=== PATIENT | female | born 1965 | race Caucasian/White ===

== ENCOUNTER 2016-11-08 12:47 | Emergency (ER) | payer OTHER ==
[2016-11-08] MEDS ORDERED: solu-MEDROL 125 MG IV ONE (13:21)
[2016-11-08] MEDS ORDERED: ROCEPHIN 1 Gm-D5w 50 ml Bag** 50 ML IV ONE ×2 (13:21→13:26)
[2016-11-08] MEDS ORDERED: DUONEB 0.5-3 MG/3 ml Neb IH ONE ×2 (13:21→13:38)
[2016-11-08] MEDS ORDERED: solu-MEDROL 125 MG ONE (13:26)
[2016-11-08] MEDS ORDERED: Sodium Chloride 0.9% 1000 ML 1,000 ML ONE (13:26)
--- NOTE | 2016-11-08 13:29 | ERPHSYRPT ---
- History of Present Illness Time Seen by Provider: 11/08/16 13:15 Source: patient Exam Limitations: clinical condition Patient Subjective Stated Complaint: pt cough-yellow, chills,aches for 6 days now, Triage Nursing Assessment: pt alert,coughing,congested, sob with excertion, pt has inhaler at home and is not using it, chest with wheezes, alert, skin w/d Physician History: PATIENT WITH HISTORY OF COPD COMPLAINS OF PRODUCTIVE COUGH YELLOW SPUTUM FOR 1 WEEK ASSOCIATED WITH EXERTIONAL DYSPNEA, LOW GRADE FEVER, LONG STANDING SMOKING HISTORY. DENIES CHEST PAIN, DIAPHORESIS. Timing/Duration: day(s) Cough Quality/Degree: productive cough Possible Cause: occasional episodes Modifying Factors: Improves With: activity Associated Symptoms: fever, chills, other (EXERTIONAL DYSPNEA) Allergies/Adverse Reactions: No Known Drug Allergies Allergy (Verified 11/08/16 12:59) Home Medications: Levothyroxine Sodium 125 Mcg 100 mcg DAILY 06/23/12 [History] Hx Tetanus, Diphtheria Vaccination/Date Given: (UNSURE) Hx Influenza Vaccination/Date Given: No Hx Pneumococcal Vaccination/Date Given: No Immunizations Up to Date: Yes - Review of Systems Constitutional: Fever, No Chills Eyes: No Symptoms Ears, Nose, & Throat: No Symptoms Respiratory: Dyspnea on Exertion (GAITAN), No Cough, No Dyspnea Cardiac: No Symptoms, No Chest Pain, No Edema, No Syncope Abdominal/Gastrointestinal: No Symptoms, No Abdominal Pain, No Nausea, No Vomiting, No Diarrhea Genitourinary Symptoms: No Symptoms, No Dysuria Musculoskeletal: No Symptoms, No Back Pain, No Neck Pain Skin: No Symptoms, No Rash Neurological: No Dizziness, No Focal Weakness, No Sensory Changes Psychological: No Symptoms Endocrine: No Symptoms All Other Systems: Reviewed and Negative - Past Medical History Pertinent Past Medical History: Yes Neurological History: No Pertinent History ENT History: No Pertinent History Cardiac History: No Pertinent History Respiratory History: Bronchitis, Emphysema, Pneumonia Endocrine Medical History: Hypothyroidism Musculoskeletal History: Arthritis GI Medical History: No Pertinent History History: No Pertinent History Psycho-Social History: Anxiety, Depression, Panic Disorder Female Reproductive Disorders: Other - Past Surgical History Past Surgical History: Yes Neuro Surgical History: No Pertinent History Cardiac: No Pertinent History Respiratory: No Pertinent History Gastrointestinal: No Pertinent History Genitourinary: No Pertinent History Musculoskeletal: No Pertinent History, Orthopedic Surgery Female Surgical History: Hysterectomy, Other Other Surgical History: CYST REMOVAL. PARTIAL HYSTER - Social History Smoking Status: Current every day smoker How long have you smoked: 1 Exposure to second hand smoke: Yes Drug Use: none Patient Lives Alone: No - Female History Hx Last Menstrual Period: hyster - Nursing Vital Signs Nursing Vital Signs: Initial Vital Signs Temperature 98.2 F Temperature Source Oral Pulse Rate 67 Respiratory Rate 18 Blood Pressure [Right Arm] 114/79 Pain Intensity 0 - Physical Exam General Appearance: no apparent distress, alert Eye Exam: PERRL/EOMI, eyes nml inspection Ears, Nose, Throat Exam: normal ENT inspection, TMs normal, pharynx normal, moist mucous membranes Neck Exam: normal inspection, non-tender, supple, full range of motion Respiratory Exam: diminished breath sounds (TERMINAL EXPIRATORY WHEEZES ), wheezing, No respiratory distress Cardiovascular Exam: regular rate/rhythm, normal heart sounds Gastrointestinal/Abdomen Exam: soft, normal bowel sounds (NONTENDER), No tenderness Back Exam: normal inspection, No CVA tenderness, No vertebral tenderness Extremity Exam: normal inspection, normal range of motion Neurologic Exam: alert, oriented x 3, cooperative, normal mood/affect, sensation nml, No motor deficits Skin Exam: normal color, warm, dry, No rash Lymphatic Exam: No adenopathy SpO2 Interpretation: normal SpO2: 92 Oxygen Delivery: Room Air - Radiology Exams Chest X-ray Interpretation: Discussed w/ radiologist (HYPERINFLATION, ) Ordered Tests: Active Orders 24 hr Category Date Time Status IV Insertion STAT Care 11/08/16 13:21 Active CHEST 1 VIEW (PORTABLE) Stat Exams 11/08/16 13:21 Completed BLOOD CULTURE Stat Lab 11/08/16 13:35 Received CBC W DIFF Stat Lab 11/08/16 13:30 Completed CULTURE,SPUTUM Stat Lab 11/08/16 13:40 Received Respiratory Nebulizer STAT RT 11/08/16 13:23 Completed Medication Summary Generic Name Dose Route Start Last Admin Trade Name Freq PRN Reason Stop Dose Admin Sodium Chloride 1,000 mls @ 250 mls/hr 11/08/16 13:30 11/08/16 13:35 Sodium Chloride 0.9% 1000 Ml IV 12/08/16 13:29 250 mls/hr .Q4H RICA Administration Discontinued Medications Generic Name Dose Route Start Last Admin Trade Name Freq PRN Reason Stop Dose Admin Albuterol/Ipratropium 3 ml 11/08/16 13:21 11/08/16 13:40 Duoneb 0.5-3 Mg/3 Ml Neb IH 11/08/16 13:22 3 ml STAT ONE Administration Albuterol/Ipratropium Confirm 11/08/16 13:38 Duoneb 0.5-3 Mg/3 Ml Neb Administered 11/08/16 13:39 Dose 3 ml IH .STK-MED ONE Ceftriaxone Sodium/Dextrose 50 mls @ 100 mls/hr 11/08/16 13:21 11/08/16 13:36 Rocephin 1 Gm-D5w 50 Ml Bag IV 11/08/16 13:50 100 mls/hr STAT ONE Administration Sodium Chloride Confirm 11/08/16 13:26 Sodium Chloride 0.9% 1000 Ml Administered 11/08/16 13:27 Dose 1,000 mls @ ud .ROUTE .STK-MED ONE Ceftriaxone Sodium/Dextrose Confirm 11/08/16 13:26 Rocephin 1 Gm-D5w 50 Ml Bag Administered 11/08/16 13:27 Dose 50 mls @ ud IV .STK-MED ONE Methylprednisolone Sodium Succinate 125 mg 11/08/16 13:21 11/08/16 13:37 Solu-Medrol 125 Mg IV 11/08/16 13:22 125 mg STAT ONE Administration Methylprednisolone Sodium Succinate Confirm 11/08/16 13:26 Solu-Medrol 125 Mg Administered 11/08/16 13:27 Dose 125 mg .ROUTE .STK-MED ONE Lab/Rad Data: Laboratory Result Diagrams 11/08/16 13:30 Laboratory Results 11/08/16 Range/Units 13:30 WBC 13.0 H (4.0-10.5) K/mm3 RBC 4.02 L (4.1-5.4) M/mm3 Hgb 12.9 (12.0-16.0) gm/dl Hct 38.1 (35-47) % MCV 94.8 (78-100) fl MCH 32.0 (26-32) pg MCHC 33.9 (32-36) g/dl RDW 14.8 H (11.5-14.0) % Plt Count 191 (150-450) K/mm3 MPV 11.6 H (6-9.5) fl Gran % 75.2 H (36.0-66.0) % Lymphocytes % 16.0 L (24.0-44.0) % Monocytes % 8.4 (0.0-12.0) % Eosinophils % 0.2 (0.00-5.0) % Basophils % 0.2 (0.0-0.4) % Basophils # 0.02 (0-0.4) - Progress Progress: improved Air Movement: good Progress Note: 11/08/16 13:27 PATIENT GIVEN IV FLUIDS NORMAL SALINE 250ML/HR, SOLUMEDROL 125MG IV, DUONEB AEROSOL TX, IV ROCEPHIN 1GM IVPB AFTER 2 SETS OF BLOOD CULTURES Blood Culture(s) Obtained: Yes Antibiotics given: Yes (ROCEPHIN 1GM IVPB) Counseled pt/family regarding: lab results, diagnosis, need for follow-up, rad results - Departure Time of Disposition: 14:50 Departure Disposition: Home Clinical Impression: ACUTE BRONCHITIS WITH BRONCHIOSPASM Condition: Stable Critical Care Time: No Additional Instructions: BEGIN ANTIBIOTIC CEFTIN 250MG TWICE DAILY FOR 10 DAYS, PREDNISONE 20MG, 2 TABLETS DAILY FOR 5 DAYS, AND ALBUTEROL NEBULIZER TREATMENTS EVERY 4 HOURS NEEDED. CONSULT YOUR FAMILY PHYSICIAN IN 1 WEEK FOR FOLLOWUP. RETURN TO EMERGENCY FOR DIFFICULTY BREATHING. TAKE OVER THE COUNTER TYLENOL NEEDED FOR FEVER. Prescriptions: Albuterol 2.5 mg/3 ml Neb [Proventil 2.5 mg/3 ml Neb] 2.5 mg IH Q4HPRN PRN #30 neb PRN Reason: DIFFICULTY BREATHING Cefuroxime Axetil [Cefuroxime] 250 mg PO BID #20 tablet Prednisone 20 mg [Deltasone 20 mg] 2 tablet PO DAILY #8 tablet
[2016-11-08] MEDS ORDERED: Sodium Chloride 0.9% 1000 ML 1,000 ML IV SCH (13:30)
--- NOTE | 2016-11-08 13:44 | XRAY ---
Indication: Cough and short of breath. Comparison: June 23, 2012. Portable chest again hyperinflated. No focal infiltrate, consolidation, or large effusion. Heart is not enlarged. Vascularity normal. Bony thorax intact again with old right seventh rib fracture. Impression: Nonacute chest.
[2016-11-08 13:55] LABS: BASOPHIL % 0.2 % (0.0-0.4); Eosinophil % 0.2 % (0.00-5.0); Granulocytes % 75.2 % (36.0-66.0); Mean Cell Volume 94.8 fl (78-100); Mean Platelet Volume 11.6 fl (6-9.5); Monocytes % 8.4 % (0.0-12.0); Platelet Count 191 K/mm3 (150-450); Red Blood Count 4.02 M/mm3 (4.1-5.4); Red Cell Distribution Width 14.8 % (11.5-14.0)
[2016-11-08 15:06] VITALS: BP 121/82; PULSE 84; O2SAT 97
== END 2016-11-08 15:06 | disposition home or self-care (01) ==
LOC: ED 12:47
DX: J20.9 Acute bronchitis, unspecified (principal); J44.9 Chronic obstructive pulmonary disease, unspecified; R05 Cough; R50.9 Fever, unspecified; Z87.891 Personal history of nicotine dependence; E03.9 Hypothyroidism, unspecified; R06.00 Dyspnea, unspecified
CPT/HCPCS: 36000; 36415; 71010; 85025; 87040; 87070; 94640; 96360; 96365; 96374; 99284; J0696; J2930

== ENCOUNTER 2018-11-21 21:00 | Emergency (ER) | payer OTHER ==
[2018-11-21 21:39] LABS: BASOPHIL % 0.3 % (0.0-0.4); Basophil (Absolute #) 0.02 (0-0.4); Eosinophil % 2.4 % (0.00-5.0); Eosinophil (Absolute #) 0.19 (0-0.5); Granulocyte Absolute (ANC) 4.58 (1.4-6.9); Granulocytes % 58.1 % (36.0-66.0); Hematocrit 38.4 % (35-47); Hemoglobin 12.5 gm/dl (12.0-16.0); Lymphocyte (Absolute #) 2.46 (1.0-4.6); Lymphocytes % 31.2 % (24.0-44.0); Mean Cell Volume 94.8 fl (78-100); Mean Corpuscular Hgb Concent. 32.6 g/dl (32-36); Mean Platelet Volume 11.7 fl (6-9.5); Monocyte (Absolute #) 0.63 (0.0-1.3); Platelet Count 204 K/mm3 (150-450); Red Blood Count 4.05 M/mm3 (4.1-5.4); White Blood Count 7.9 K/mm3 (4.0-10.5)
[2018-11-21 21:44] LABS: ALBUMIN 4.6 g/dL (3.5-5.0); ALKALINE PHOSPHATASE 127 U/L (38-126); ANION GAP 10.2 MEQ/L (5-15); BLOOD UREA NITROGEN 11 mg/dL (7-17); CHLORIDE 102 mmol/L (98-107); Calcium 9.7 mg/dL (8.4-10.2); Carbon Dioxide 30 mmol/L (22-30); Creatinine 1 0.76 mg/dL (0.52-1.04); Glucose 90 mg/dL (74-106); Potassium 3.4 mmol/L (3.5-5.1); SGOT/AST 44 U/L (14-36); SGPT/ALT 40 U/L (0-35); SODIUM 139 mmol/L (137-145); Total Protein 8.1 g/dL (6.3-8.2)
[2018-11-21 21:46] LABS: Mean Corpuscular Hemoglobin 30.8 pg (26-32)
--- NOTE | 2018-11-21 21:50 | ERPHSYRPT ---
- History of Present Illness Time Seen by Provider: 11/21/18 21:41 Source: patient Exam Limitations: no limitations Patient Subjective Stated Complaint: pt reports cough, congestion and headache for 2 days. reports the back of her head is pounding. pt reports nasal drainage that is yellow in color. pt reports while showering tonight she began to have left sided chest pain that radiates to the axilla. pt reports vomiting. pt states she also has pain in her neck. Triage Nursing Assessment: pt is aox3, pupils perrl, afebrile, radial pulses strong and equal, resps easy and non labored, lung sounds are clear, heart sounds are strong and regular, cap refill < 3 seconds, skin pink warm dry. Physician History: 53-year-old white female arrives with complaint cough congestion 2 days states she she had a headache going along with this she states that she feels like she is getting yellow drainage for her nose today coughing up yellow sputum. She states she was in the shower today just prior to arrival she had sharp shooting pain which radiated from the top of her head and ended up hurting in her left axillary area she states she is tender when she palpates her of left lateral chest. She states she has had some shortness of breath she is coughing she's had a sore throat. Past medical history includes hypothyroidism, bronchitis, emphysema, pneumonia, arthritis, anxiety, depression, panic disorder/ Past surgical history includes hysterectomy, orthopedic surgery, cyst removed from her right shoulder, partial hysterectomy/ Social history is positive for marijuana positive tobacco patient denies amphetamines cocaine or other illicit drugs than marijuana/ Denies alcohol use Timing/Duration: day(s) (cough and cold for 2 daysharp shooting pain radiating from the back of her head going to her left lateral chest today.) Severity: moderate Modifying Factors: Improves With: nothing Associated Symptoms: shortness of breath, cough, chest pain (Sharp lateral chest pain which radiates from her head and is worse with palpation), headaches , No nausea, No vomiting, No abdominal pain, No heartburn, No diaphoresis, No chills, No fever, No loss of appetite, No malaise, No rash, No syncope, No seizure, No weakness Allergies/Adverse Reactions: No Known Drug Allergies Allergy (Verified 11/21/18 21:17) Home Medications: Levothyroxine Sodium 125 Mcg 100 mcg DAILY 10/12/12 [History] Hx Tetanus, Diphtheria Vaccination/Date Given: No Hx Influenza Vaccination/Date Given: No Hx Pneumococcal Vaccination/Date Given: No Immunizations Up to Date: Yes - Review of Systems Constitutional: No Fever, No Chills Eyes: No Symptoms Ears, Nose, & Throat: Nose Congestion, Nose Discharge, Throat Pain, No Ear Pain , No Ear Discharge, No Hearing Changes, No Tinnitus, No Nose Pain, No Sinus Drainage, No Epistaxis, No Mouth Pain, No Mouth Swelling, No Loose Teeth, No Throat Swelling, No Hoarse, No Painful Swallowing, No Snoring, No Stridor Respiratory: Cough, Dyspnea, No Cyanosis, No Dyspnea on Exertion (GAITAN), No Wheezing Cardiac: Chest Pain (sharp lateral chest pain radiates from her head shooting in nature worse with palpation) Abdominal/Gastrointestinal: No Abdominal Pain, No Nausea, No Vomiting, No Diarrhea Genitourinary Symptoms: No Dysuria Musculoskeletal: No Back Pain, No Neck Pain Skin: No Rash Neurological: No Dizziness, No Focal Weakness, No Sensory Changes Psychological: No Symptoms Endocrine: No Symptoms All Other Systems: Reviewed and Negative - Past Medical History Pertinent Past Medical History: Yes Neurological History: No Pertinent History ENT History: No Pertinent History Cardiac History: No Pertinent History Respiratory History: Bronchitis, Emphysema, Pneumonia Endocrine Medical History: Hypothyroidism Musculoskeletal History: Arthritis GI Medical History: No Pertinent History History: No Pertinent History Psycho-Social History: Anxiety, Depression, Panic Disorder Female Reproductive Disorders: Other - Past Surgical History Past Surgical History: Yes Neuro Surgical History: No Pertinent History Cardiac: No Pertinent History Respiratory: No Pertinent History Gastrointestinal: No Pertinent History Genitourinary: No Pertinent History Musculoskeletal: No Pertinent History, Orthopedic Surgery Female Surgical History: Hysterectomy, Other Other Surgical History: CYST REMOVAL. PARTIAL HYSTER - Social History Smoking Status: Current every day smoker How long have you smoked: 1 Exposure to second hand smoke: Yes Drug Use: marijuana Patient Lives Alone: No - Female History Hx Last Menstrual Period: partial hyst Hx Now: No - Nursing Vital Signs Nursing Vital Signs: Initial Vital Signs Temperature 97.6 F 11/21/18 21:04 Pulse Rate 76 11/21/18 21:04 Respiratory Rate 20 11/21/18 21:04 Blood Pressure 143/79 11/21/18 21:04 O2 Sat by Pulse Oximetry 98 11/21/18 21:04 Pain Scale Pain Intensity 7 - Physical Exam General Appearance: mild distress, alert Eye Exam: PERRL/EOMI, eyes nml inspection Ears, Nose, Throat Exam: normal ENT inspection, TMs normal, pharynx normal, moist mucous membranes Neck Exam: normal inspection, non-tender, supple, full range of motion Respiratory Exam: normal breath sounds, lungs clear, No respiratory distress Cardiovascular Exam: regular rate/rhythm, normal heart sounds, normal peripheral pulses, capillary refill <2 sec Gastrointestinal/Abdomen Exam: soft, normal bowel sounds, No tenderness, No mass Back Exam: normal inspection, normal range of motion, No CVA tenderness, No vertebral tenderness Extremity Exam: normal inspection, normal range of motion, pelvis stable Neurologic Exam: alert, oriented x 3, cooperative, medical cash poster II-XII nml as tested, normal mood/affect, nml cerebellar function, nml station & gait, sensation nml, No motor deficits Skin Exam: normal color, warm, dry, No rash Lymphatic Exam: No adenopathy SpO2 Interpretation: normal (98%) SpO2: 98 O2 Delivery: Room Air - Course Nursing assessment & vital signs reviewed: Yes EKG Interpreted by Me: RATE (76 bpm), Other (EKG: Sinus arrhythmia, 76 bpm, normal axis, isolated T-wave inversion in lead 3, no acute ST or T wave changes) - CT Exams Head CT Interpretation: Discussed w/radiologist (head CT: No comparisons. Normal CT head) Ordered Tests: Active Orders 24 hr Category Date Time Status Software Clerk STAT Care 11/21/18 21:30 Active EKG-ER Only STAT Care 11/21/18 21:30 Active EKG-ER Only STAT Care 11/22/18 01:14 Active IV Insertion STAT Care 11/21/18 21:30 Active Pulse Oximetry (ED) STAT Care 11/21/18 21:30 Active CHEST 1 VIEW (PORTABLE) Stat Exams 11/21/18 21:30 Taken HEAD WITHOUT CONTRAST [CT] Stat Exams 11/21/18 21:45 Taken CBC W DIFF Stat Lab 11/21/18 21:35 Completed CMP Stat Lab 11/21/18 21:35 Completed D-DIMER QUANTITATION Stat Lab 11/21/18 21:35 Completed PROTIME WITH INR Stat Lab 11/21/18 21:35 Completed PTT Stat Lab 11/21/18 21:35 Completed TROPONIN Q3H Lab 11/21/18 21:35 Completed TROPONIN Q3H Lab 11/22/18 00:42 Completed TROPONIN Q3H Lab 11/22/18 03:30 Ordered TROPONIN Q3H Lab 11/22/18 06:30 Ordered TROPONIN Q3H Lab 11/22/18 09:30 Ordered Medication Summary Discontinued Medications Generic Name Dose Route Start Last Admin Trade Name Uliq PRN Reason Stop Dose Admin Aspirin 324 mg 11/21/18 22:28 11/21/18 22:36 Baby Aspirin 81 Mg Chew PO 11/21/18 22:29 324 mg STAT ONE Administration Aspirin Confirm 11/21/18 22:34 Baby Aspirin 81 Mg Chew Administered 11/21/18 22:35 Dose 324 mg .ROUTE .STZzish-MED ONE Lab/Rad Data: Laboratory Result Diagrams 11/21/18 21:35 11/21/18 21:35 Laboratory Results 11/22/18 11/21/18 11/21/18 Range/Units 00:42 21:56 21:35 WBC (4.0-10.5) K/mm3 RBC (4.1-5.4) M/mm3 Hgb (12.0-16.0) gm/dl Hct (35-47) % MCV (78-100) fl MCH (26-32) pg MCHC (32-36) g/dl RDW (11.5-14.0) % Plt Count (150-450) K/mm3 MPV (6-9.5) fl Gran % (36.0-66.0) % Eos # (Auto) (0-0.5) Absolute Lymphs (auto) (1.0-4.6) Absolute Monos (auto) (0.0-1.3) Lymphocytes % (24.0-44.0) % Monocytes % (0.0-12.0) % Eosinophils % (0.00-5.0) % Basophils % (0.0-0.4) % Absolute Granulocytes (1.4-6.9) Basophils # (0-0.4) PT 11.8 (9.95-12.35) SECONDS INR 1.01 (0.8-3.0) APTT 30.2 (25.3-37.0) SECONDS D-Dimer 416 (215-500) ng/mL Sodium (137-145) mmol/L Potassium (3.5-5.1) mmol/L Chloride (98-107) mmol/L Carbon Dioxide (22-30) mmol/L Anion Gap (5-15) MEQ/L BUN (7-17) mg/dL Creatinine (0.52-1.04) mg/dL Estimated GFR ML/MIN Glucose (74-106) mg/dL Calcium (8.4-10.2) mg/dL Total Bilirubin (0.2-1.3) mg/dL AST (14-36) U/L ALT (0-35) U/L Alkaline Phosphatase (38-126) U/L Troponin I 0.158 H* (0.000-0.034) ng/mL Serum Total Protein (6.3-8.2) g/dL Albumin (3.5-5.0) g/dL Influenza Type A Ag NEGATIVE (NEGATIVE) Influenza Type B Ag NEGATIVE (NEGATIVE) RSV (PCR) NEGATIVE (Negative) Group A Strep Antibody NEGATIVE (NEGATIVE) 11/21/18 11/21/18 11/21/18 Range/Units 21:35 21:35 21:35 WBC 7.9 (4.0-10.5) K/mm3 RBC 4.05 L (4.1-5.4) M/mm3 Hgb 12.5 (12.0-16.0) gm/dl Hct 38.4 (35-47) % MCV 94.8 (78-100) fl MCH 30.8 (26-32) pg MCHC 32.6 (32-36) g/dl RDW 16.0 H (11.5-14.0) % Plt Count 204 (150-450) K/mm3 MPV 11.7 H (6-9.5) fl Gran % 58.1 (36.0-66.0) % Eos # (Auto) 0.19 (0-0.5) Absolute Lymphs (auto) 2.46 (1.0-4.6) Absolute Monos (auto) 0.63 (0.0-1.3) Lymphocytes % 31.2 (24.0-44.0) % Monocytes % 8.0 (0.0-12.0) % Eosinophils % 2.4 (0.00-5.0) % Basophils % 0.3 (0.0-0.4) % Absolute Granulocytes 4.58 (1.4-6.9) Basophils # 0.02 (0-0.4) PT (9.95-12.35) SECONDS INR (0.8-3.0) APTT (25.3-37.0) SECONDS D-Dimer (215-500) ng/mL Sodium 139 (137-145) mmol/L Potassium 3.4 L (3.5-5.1) mmol/L Chloride 102 (98-107) mmol/L Carbon Dioxide 30 (22-30) mmol/L Anion Gap 10.2 (5-15) MEQ/L BUN 11 (7-17) mg/dL Creatinine 0.76 (0.52-1.04) mg/dL Estimated GFR > 60.0 ML/MIN Glucose 90 (74-106) mg/dL Calcium 9.7 (8.4-10.2) mg/dL Total Bilirubin 0.50 (0.2-1.3) mg/dL AST 44 H (14-36) U/L ALT 40 H (0-35) U/L Alkaline Phosphatase 127 H (38-126) U/L Troponin I 0.038 H* (0.000-0.034) ng/mL Serum Total Protein 8.1 (6.3-8.2) g/dL Albumin 4.6 (3.5-5.0) g/dL Influenza Type A Ag (NEGATIVE) Influenza Type B Ag (NEGATIVE) RSV (PCR) (Negative) Group A Strep Antibody (NEGATIVE) - Progress Progress: improved Progress Note: 11/21/18 23:24 Patient doing well. She is complaining of a headache at this time. EKG shows isolated T-wave inversion in lead [address] or T wave changes noted. Troponin is slightly elevated at 0.038 (normal to 0 .034) I have talked with the patient about possibly discussing case with physician extrusion engineer for hospital however patient states that she does not want to be admitted. I have told her this is how we rule out cardiac problems. Patient has agreed to stay and get a second troponin. 11/22/18 01:17 Informed by laboratory data patient's preliminary repeat troponin is 0.159 This is elevated. Patient is actually pain-free at this time. Patient is refusing ambulance transfer. 11/22/18 02:55 I discussed patient's case with Dr. Yun hospitalist through [facility] call. I've gone through the patient's labs CT x-ray and EKGs. He has requested the patient receive Lovenox 1 mg/kg subcutaneously. Patient has already received aspirin 324 mg orally. He has excepted for transfer to [facility] PCU. Transfer center will call back with the bed. Impression 1. URI. 2. chest pain. 3, elevated troponin. 4.non-ST elevation myocardial infarction. - Departure Time of Disposition: 02:57 Departure Disposition: Transfer ([facility] Dr Yun) Clinical Impression: Elevated troponin, Non-ST elevation MS (NSTEMI) URI (upper respiratory infection) Qualifiers: URI type: unspecified viral URI Qualified Code(s): J06.9 - Acute upper respiratory infection, unspecified Chest pain Qualifiers: Chest pain type: unspecified Qualified Code(s): R07.9 - Chest pain, unspecified Headache Qualifiers: Headache type: unspecified Headache chronicity pattern: acute headache Intractability: not intractable Qualified Code(s): R51 - Headache Condition: Fair Critical Care Time: No Referrals: ALEXUS KOHLI [Primary Care Provider] -
[2018-11-21 21:57] LABS: INR 1.01 (0.8-3.0); PROTIME 11.8 SECONDS (9.95-12.35)
[2018-11-21 21:59] LABS: PTT 30.2 SECONDS (25.3-37.0)
[2018-11-21] MEDS ORDERED: BABY ASPIRIN 81 MG CHEW PO ONE (22:28)
[2018-11-21] MEDS ORDERED: BABY ASPIRIN 81 MG CHEW ONE (22:34)
[2018-11-21 22:38] LABS: Group A Strep NEGATIVE (NEGATIVE); INFLUENZA A NEGATIVE (NEGATIVE); INFLUENZA B NEGATIVE (NEGATIVE); RESPIRATORY SYNCTIAL VIRUS NEGATIVE (Negative)
[2018-11-22 01:20] VITALS: O2SAT 98
[2018-11-22] MEDS ORDERED: ENOXAPARIN SODIUM SQ STA (03:04)
[2018-11-22] MEDS ORDERED: ENOXAPARIN SODIUM SQ ONE (03:16)
[2018-11-22 03:51] VITALS: BP 134/61; PULSE 66
--- NOTE | 2018-11-22 08:34 | XRAY ---
Indication: Headache. Multiple contiguous axial images obtained through the head without contrast. Comparison: None. Normal appearing brain parenchyma, ventricles, and bony calvarium. Minimal mucosal thickening right ethmoid and right sphenoid sinuses. Remaining visualized paranasal sinuses and mastoid air cells are clear. Impression: Normal CT head without contrast exam. Minimal paranasal sinus disease. CT DI 70.98
--- NOTE | 2018-11-22 08:39 | XRAY ---
Indication: Chest pain. Comparison: November 08, 2016. Portable chest remains hyperinflated with minimal right upper lobe fibrosis/scarring. No focal infiltrate, consolidation, or large effusion. Heart is not enlarged. Bony thorax intact again with old right 7 rib fracture. Impression: Nonacute hyperinflated chest with chronic features.
== END 2018-11-22 04:11 | disposition short-term general hospital (02) ==
LOC: ED 21:00
DX: J06.9 Acute upper respiratory infection, unspecified (principal); R07.9 Chest pain, unspecified; R51 Headache; R74.8 Abnormal levels of other serum enzymes; I21.4 Non-ST elevation (NSTEMI) myocardial infarction; E03.9 Hypothyroidism, unspecified; R78.4 Finding of other drugs of addictive potential in blood
CPT/HCPCS: 36000; 36415; 70450; 71045; 80053; 84484; 85025; 85379; 85610; 85730; 87631; 87651; 93005; 93041; 96372; 99285; J1650; A9270-GY

== ENCOUNTER 2023-02-25 14:54 | Inpatient (IN) | payer OTHER ==
--- NOTE | 2023-02-25 15:00 | ERPHSYRPT ---
- History of Present Illness Time Seen by Provider: 02/25/23 14:59 Historian: patient, family Exam Limitations: no limitations Physician History: This is a 57-year-old white female patient of Dr. Jimenez who presents with vomiting that occurred 2 days ago and then again yesterday with associated coughing then diarrhea today with coughing. There is been no vomiting today. Patient denies chest pain. Patient quit smoking 3 days ago. She has had a decreased appetite. She has no significant abdominal pain. Patient has a history of bronchitis, COPD, panic disorder and hypothyroidism. Patient has had a hysterectomy in the past. Timing/Duration: day(s) (3) Activities at Onset: none Quality: sharpness (Not in the abdomen but the right mid chest), stabbing (Not in the abdomen but in the right mid chest) Severity of Pain-Max: none Severity of Pain-Current: none Modifying Factors: Improves With: coughing (With pain in the right mid chest) Associated Symptoms: chest pain (Right mid chest with coughing), diarrhea, vomiting, weakness, No fever/chills Previous symptoms: no prior history, no recent treatment Allergies/Adverse Reactions: No Known Drug Allergies Allergy (Verified 02/25/23 16:07) Home Medications: Levothyroxine Sodium 100 Mcg [Synthroid 100 Mcg] 100 mcg PO DAILY 02/25/23 [History] Hx Tetanus, Diphtheria Vaccination/Date Given: No Hx Influenza Vaccination/Date Given: No Hx Pneumococcal Vaccination/Date Given: No Travel Risk - International Travel Have you traveled outside of the country in past 3 weeks: No - Coronavirus Screening Are you exhibiting any of the following symptoms?: Yes Symptoms: Cough: New Onset, Shortness of Breath Close contact with a COVID-19 positive Pt in past 14-21 Days: No - Review of Systems Constitutional: Weakness Eyes: No Symptoms Ears, Nose, & Throat: No Symptoms Respiratory: Cough, Dyspnea, Dyspnea on Exertion ([place]) Cardiac: No Symptoms, Chest Pain (Right mid chest with coughing) Abdominal/Gastrointestinal: No Symptoms Genitourinary Symptoms: No Symptoms Musculoskeletal: No Symptoms Skin: No Symptoms Neurological: No Symptoms Psychological: No Symptoms Endocrine: No Symptoms Hematologic/Lymphatic: No Symptoms Immunological/Allergic: No Symptoms All Other Systems: Reviewed and Negative - Past Medical History Pertinent Past Medical History: Yes Neurological History: No Pertinent History ENT History: No Pertinent History Cardiac History: No Pertinent History Respiratory History: Bronchitis, Emphysema, Pneumonia Endocrine Medical History: Hypothyroidism Musculoskeletal History: Arthritis GI Medical History: No Pertinent History History: No Pertinent History Psycho-Social History: Anxiety, Depression, Panic Disorder Female Reproductive Disorders: Other - Past Surgical History Past Surgical History: Yes Neuro Surgical History: No Pertinent History Cardiac: No Pertinent History Respiratory: No Pertinent History Gastrointestinal: No Pertinent History Genitourinary: No Pertinent History Musculoskeletal: No Pertinent History, Orthopedic Surgery Female Surgical History: Hysterectomy, Other Other Surgical History: CYST REMOVAL. PARTIAL HYSTER - Social History Smoking Status: Current every day smoker How long have you smoked: 1 Exposure to second hand smoke: Yes Drug Use: marijuana Patient Lives Alone: No - Nursing Vital Signs Nursing Vital Signs: Initial Vital Signs Temperature 99.7 F 02/25/23 15:36 Pulse Rate 84 02/25/23 15:36 Blood Pressure 149/72 02/25/23 15:36 O2 Sat by Pulse Oximetry 97 02/25/23 15:36 Pain Scale Pain Intensity 7 - Physical Exam General Appearance: mild distress, alert, anxiety Eye Exam: PERRL/EOMI, eyes nml inspection Ears, Nose, Throat Exam: normal ENT inspection, moist mucous membranes Neck Exam: normal inspection, non-tender, supple, full range of motion Respiratory Exam: chest tenderness, airway intact, diminished breath sounds, rh onchi (Right mid chest), No respiratory distress (Right mid chest with coughing) Cardiovascular Exam: regular rate/rhythm, normal heart sounds, normal peripheral pulses Gastrointestinal/Abdomen Exam: soft, normal bowel sounds, No tenderness Pelvic Exam: not done Rectal Exam: not done Back Exam: normal inspection, normal range of motion, No CVA tenderness, No vertebral tenderness Extremity Exam: normal inspection, normal range of motion, pelvis stable Neurologic Exam: alert, oriented x 3, cooperative, final expense agent II-XII nml as tested, normal mood/affect, nml cerebellar function, nml station & gait, sensation nml Skin Exam: normal color, warm, dry Lymphatic Exam: No adenopathy SpO2 Interpretation: normal O2 Delivery: Room Air - Course Nursing assessment & vital signs reviewed: Yes Ordered Tests: Active Orders 24 hr Category Date Time Status Bilingual Loan Processor STAT Care 02/25/23 16:00 Active IV Insertion STAT Care 02/25/23 15:59 Active Nursing [Miscellaneous Nursing Order] ROUTINE Care 02/25/23 18:13 Ordered Pulse Oximetry (ED) STAT Care 02/25/23 15:59 Active CHEST 1 VIEW (PORTABLE) Stat Exams 02/25/23 15:45 Taken BLOOD CULTURE Stat Lab 02/25/23 16:25 Received CBC W DIFF Stat Lab 02/25/23 16:25 Completed CMP Stat Lab 02/25/23 16:25 Completed Lactic Acid Stat Lab 02/25/23 16:25 Completed MONO SCREEN Stat Lab 02/25/23 16:25 Completed Manual Differential NC Stat Lab 02/25/23 16:25 Completed UA W/RFX UR CULTURE Stat Lab 02/25/23 16:06 Completed Transfer Order Routine Transfer 02/25/23 Ordered Medication Summary Generic Name Dose Route Start Last Admin Trade Name Freq PRN Reason Stop Dose Admin Sodium Chloride 1,000 mls @ 999 mls/hr 02/25/23 17:46 02/25/23 17:52 Sodium Chloride 0.9% 1000 Ml IV 02/25/23 18:46 999 mls/hr .Q1H1M STA Administration Ceftriaxone Sodium/Dextrose 1 g in 50 mls @ 100 mls/hr 02/25/23 18:05 Rocephin 1 Gm-D5w 50 Ml Bag IV 02/25/23 18:34 STAT STA Discontinued Medications Generic Name Dose Route Start Last Admin Trade Name Freq PRN Reason Stop Dose Admin Acetaminophen 650 mg 02/25/23 17:21 02/25/23 17:23 Acetaminophen 325 Mg Tablet PO 02/25/23 17:22 650 mg STAT STA Administration Acetaminophen Confirm 02/25/23 17:22 Acetaminophen 325 Mg Tablet Administered 02/25/23 17:23 Dose 650 mg .ROUTE .STK-MED ONE Acetaminophen Confirm 02/25/23 17:25 Acetaminophen 325 Mg Tablet Administered 02/25/23 17:26 Dose 325 mg .ROUTE .STK-MED ONE Hydrocodone Bitart/Acetaminophen 10 ml 02/25/23 16:02 02/25/23 16:44 Hydrocodone/Acetaminophen 5 Ml Udcup PO 02/25/23 16:03 10 ml STAT STA Administration Hydrocodone Bitart/Acetaminophen Confirm 02/25/23 16:42 Hydrocodone/Acetaminophen 5 Ml Udcup Administered 02/25/23 16:43 Dose 10 ml .ROUTE .STK-MED ONE Sodium Chloride 1,000 mls @ 999 mls/hr 02/25/23 16:01 02/25/23 17:47 Sodium Chloride 0.9% 1000 Ml IV 02/25/23 17:01 Infused .Q1H1M STA Infusion Sodium Chloride Confirm 02/25/23 16:42 Sodium Chloride 0.9% 1000 Ml Administered 02/25/23 16:43 Dose 1,000 mls @ ud .ROUTE .STK-MED ONE Levofloxacin/Dextrose Confirm 02/25/23 16:51 Levofloxacin 500mg/100ml D5w Administered 02/25/23 16:52 Dose 500 mg in 100 mls @ ud IV .STK-MED ONE Levofloxacin/Dextrose 500 mg in 100 mls @ 100 mls/hr 02/25/23 16:56 02/25/23 18:00 Levofloxacin 500mg/100ml D5w IV 02/25/23 17:55 Infused STAT STA Infusion Sodium Chloride Confirm 02/25/23 17:50 Sodium Chloride 0.9% 1000 Ml Administered 02/25/23 17:51 Dose 1,000 mls @ ud .ROUTE .STK-MED ONE Ondansetron HCl 4 mg 02/25/23 16:01 02/25/23 16:44 Ondansetron Hcl 4 Mg/2 Ml Vial IV 02/25/23 16:02 4 mg STAT ONE Administration Ondansetron HCl Confirm 02/25/23 16:41 Ondansetron Hcl 4 Mg/2 Ml Vial Administered 02/25/23 16:42 Dose 4 mg .ROUTE .STK-MED ONE Lab/Rad Data: Laboratory Result Diagrams 02/25/23 16:25 02/25/23 16:25 Laboratory Results 02/25/23 02/25/23 02/25/23 Range/Units 16:25 16:25 16:25 WBC (4.0-10.5) x10^3/uL RBC (4.1-5.4) x10^6/uL Hgb (12.0-16.0) g/dL Hct (35-47) % MCV (78-100) fL MCH (26-32) pg MCHC (32-36) g/dL RDW (11.5-14.0) % Plt Count (150-450) x10^3/uL MPV (7.5-11.0) fL Gran % (36.0-66.0) % Immature Gran % (Auto) (0.00-0.4) % Nucleat RBC Rel Count (0.00-0.1) % Eos # (Auto) (0-0.5) x10^3/uL Immature Gran # (Auto) (0.00-0.03) x10^3u/L Absolute Lymphs (auto) (1.0-4.6) x10^3/uL Absolute Monos (auto) (0.0-1.3) x10^3/uL Absolute Nucleated RBC (0.00-0.01) x10^3u/L Lymphocytes % (24.0-44.0) % Monocytes % (0.0-12.0) % Eosinophils % (0.00-5.0) % Basophils % (0.0-0.4) % Absolute Granulocytes (1.4-6.9) x10^3/uL Segmented Neutrophils (36.0-66.0) % Lymphocytes (Manual) (24-44) % Basophils # (0-0.4) x10^3/uL Dohle Bodies Platelet Estimate (NORMAL) RBC Morphology Anisocytosis Sodium (137-145) mmol/L Potassium (3.5-5.1) mmol/L Chloride (98-107) mmol/L Carbon Dioxide (22-30) mmol/L Anion Gap (5-15) MEQ/L BUN (7-17) mg/dL Creatinine (0.52-1.04) mg/dL Estimated GFR ML/MIN Glucose (74-106) mg/dL Lactic Acid (0.4-2.0) Calcium (8.4-10.2) mg/dL Total Bilirubin (0.2-1.3) mg/dL AST (14-36) U/L ALT (0-35) U/L Alkaline Phosphatase (38-126) U/L Serum Total Protein (6.3-8.2) g/dL Albumin (3.5-5.0) g/dL Urine Color (Yellow) Urine Appearance (Clear) Urine pH (4.6-8.0) Ur Specific [place] (1.005-1.030) Urine Protein (Negative) Urine Glucose (UA) (Negative) mg/dL Urine Ketones (Negative) Urine Blood (Negative) Urine Nitrite (Negative) Urine Bilirubin (Negative) Urine Urobilinogen (0.2) mg/dL Ur Leukocyte Esterase (Negative) U Hyaline Cast (Auto) (0-2) /LPF Urine Microscopic RBC (0-5) /HPF Urine Microscopic WBC (0-5) /HPF Ur Epithelial Cells (None Seen) /HPF Urine Bacteria (None Seen) /HPF Urine Culture Reflexed (NO) Monoscreen NEGATIVE (NEGATIVE) Influenza Type A Ag NEGATIVE (NEGATIVE) Influenza Type B Ag NEGATIVE (NEGATIVE) RSV (PCR) NEGATIVE (NEGATIVE) SARS-CoV-2 (PCR) NEGATIVE (NEGATIVE) Group A Strep Antibody NOT DETECTED (NEGATIVE) 02/25/23 02/25/23 02/25/23 Range/Units 16:25 16:25 16:25 WBC 14.4 H (4.0-10.5) x10^3/uL RBC 4.29 (4.1-5.4) x10^6/uL Hgb 10.3 L (12.0-16.0) g/dL Hct 33.8 L (35-47) % MCV 78.8 (78-100) fL MCH 24.0 L (26-32) pg MCHC 30.5 L (32-36) g/dL RDW 17.2 H (11.5-14.0) % Plt Count 193 (150-450) x10^3/uL MPV 11.0 (7.5-11.0) fL Gran % 93.1 H (36.0-66.0) % Immature Gran % (Auto) 0.3 (0.00-0.4) % Nucleat RBC Rel Count 0.0 (0.00-0.1) % Eos # (Auto) 0 (0-0.5) x10^3/uL Immature Gran # (Auto) 0.05 H (0.00-0.03) x10^3u/L Absolute Lymphs (auto) 0.72 L (1.0-4.6) x10^3/uL Absolute Monos (auto) 0.21 (0.0-1.3) x10^3/uL Absolute Nucleated RBC 0.00 (0.00-0.01) x10^3u/L Lymphocytes % 5.0 L (24.0-44.0) % Monocytes % 1.5 (0.0-12.0) % Eosinophils % 0.0 (0.00-5.0) % Basophils % 0.1 (0.0-0.4) % Absolute Granulocytes 13.41 H (1.4-6.9) x10^3/uL Segmented Neutrophils 96 H (36.0-66.0) % Lymphocytes (Manual) 4 L (24-44) % Basophils # 0.02 (0-0.4) x10^3/uL Dohle Bodies 1+ Platelet Estimate NORMAL (NORMAL) RBC Morphology ABNORMAL Anisocytosis 1+ Sodium 131 L (137-145) mmol/L Potassium 3.6 (3.5-5.1) mmol/L Chloride 93 L (98-107) mmol/L Carbon Dioxide 24 (22-30) mmol/L Anion Gap 17.8 H (5-15) MEQ/L BUN 27 H (7-17) mg/dL Creatinine 1.02 (0.52-1.04) mg/dL Estimated GFR 59.6 ML/MIN Glucose 100 (74-106) mg/dL Lactic Acid 4.0 H (0.4-2.0) Calcium 8.8 (8.4-10.2) mg/dL Total Bilirubin 1.00 (0.2-1.3) mg/dL AST 37 H (14-36) U/L ALT 23 (0-35) U/L Alkaline Phosphatase 74 (38-126) U/L Serum Total Protein 7.8 (6.3-8.2) g/dL Albumin 4.0 (3.5-5.0) g/dL Urine Color (Yellow) Urine Appearance (Clear) Urine pH (4.6-8.0) Ur Specific [place] (1.005-1.030) Urine Protein (Negative) Urine Glucose (UA) (Negative) mg/dL Urine Ketones (Negative) Urine Blood (Negative) Urine Nitrite (Negative) Urine Bilirubin (Negative) Urine Urobilinogen (0.2) mg/dL Ur Leukocyte Esterase (Negative) U Hyaline Cast (Auto) (0-2) /LPF Urine Microscopic RBC (0-5) /HPF Urine Microscopic WBC (0-5) /HPF Ur Epithelial Cells (None Seen) /HPF Urine Bacteria (None Seen) /HPF Urine Culture Reflexed (NO) Monoscreen (NEGATIVE) Influenza Type A Ag (NEGATIVE) Influenza Type B Ag (NEGATIVE) RSV (PCR) (NEGATIVE) SARS-CoV-2 (PCR) (NEGATIVE) Group A Strep Antibody (NEGATIVE) 02/25/23 Range/Units 16:06 WBC (4.0-10.5) x10^3/uL RBC (4.1-5.4) x10^6/uL Hgb (12.0-16.0) g/dL Hct (35-47) % MCV (78-100) fL MCH (26-32) pg MCHC (32-36) g/dL RDW (11.5-14.0) % Plt Count (150-450) x10^3/uL MPV (7.5-11.0) fL Gran % (36.0-66.0) % Immature Gran % (Auto) (0.00-0.4) % Nucleat RBC Rel Count (0.00-0.1) % Eos # (Auto) (0-0.5) x10^3/uL Immature Gran # (Auto) (0.00-0.03) x10^3u/L Absolute Lymphs (auto) (1.0-4.6) x10^3/uL Absolute Monos (auto) (0.0-1.3) x10^3/uL Absolute Nucleated RBC (0.00-0.01) x10^3u/L Lymphocytes % (24.0-44.0) % Monocytes % (0.0-12.0) % Eosinophils % (0.00-5.0) % Basophils % (0.0-0.4) % Absolute Granulocytes (1.4-6.9) x10^3/uL Segmented Neutrophils (36.0-66.0) % Lymphocytes (Manual) (24-44) % Basophils # (0-0.4) x10^3/uL Dohle Bodies Platelet Estimate (NORMAL) RBC Morphology Anisocytosis Sodium (137-145) mmol/L Potassium (3.5-5.1) mmol/L Chloride (98-107) mmol/L Carbon Dioxide (22-30) mmol/L Anion Gap (5-15) MEQ/L BUN (7-17) mg/dL Creatinine (0.52-1.04) mg/dL Estimated GFR ML/MIN Glucose (74-106) mg/dL Lactic Acid (0.4-2.0) Calcium (8.4-10.2) mg/dL Total Bilirubin (0.2-1.3) mg/dL AST (14-36) U/L ALT (0-35) U/L Alkaline Phosphatase (38-126) U/L Serum Total Protein (6.3-8.2) g/dL Albumin (3.5-5.0) g/dL Urine Color Dark Yellow A (Yellow) Urine Appearance Clear (Clear) Urine pH 5.0 (4.6-8.0) Ur Specific [place] 1.025 (1.005-1.030) Urine Protein 100 A (Negative) Urine Glucose (UA) Negative (Negative) mg/dL Urine Ketones Negative (Negative) Urine Blood Negative (Negative) Urine Nitrite Negative (Negative) Urine Bilirubin Negative (Negative) Urine Urobilinogen 0.2 (0.2) mg/dL Ur Leukocyte Esterase Negative (Negative) U Hyaline Cast (Auto) 20-50 (0-2) /LPF Urine Microscopic RBC 0-2 (0-5) /HPF Urine Microscopic WBC 0-2 (0-5) /HPF Ur Epithelial Cells Rare (None Seen) /HPF Urine Bacteria None Seen (None Seen) /HPF Urine Culture Reflexed NO (NO) Monoscreen (NEGATIVE) Influenza Type A Ag (NEGATIVE) Influenza Type B Ag (NEGATIVE) RSV (PCR) (NEGATIVE) SARS-CoV-2 (PCR) (NEGATIVE) Group A Strep Antibody (NEGATIVE) - Progress Progress: pain not gone completely Progress Note: 02/25/23 16:21 Chest x-ray was reviewed and interpreted by me and it appears as though the patient has a right middle lobe pneumonia with fibrosis and scarring present. It is in a wedge shaped. 02/25/23 18:06 This patient's medical issue is 1 of high complexity. The level of complexity and the work-up performed is based on the review of the patient's past medical history, review of the patient's medication list, review of the patient's drug allergy list, history of present illness and the findings on physical examination. The work-up includes placement of intravenous line and infusion of normal saline solution, CBC, CMP, lactic acid, chest x-ray, and blood cultures. Patient work-up results were reviewed by me. Patient has a right middle lobe pneumonia. Patient did spike a fever while in the emergency department. We will provide the patient with 500 mg Levaquin here in the emergency department intravenously as well as Rocephin 1 g. We will start azithromycin tomorrow to space out from the Levaquin. I spoke with Dr. Dickinson, the telehospitalist on- call till 7 PM. I reviewed the patient history, work-up results physical findings and radiographic study results. Counseled pt/family regarding: lab results, diagnosis, rad results, smoking cessation Medical Desision Making - Discussion of managment Reviewed:: Test results, Need for additional workup Agreed on:: place in obs - Diagnostic Testing Diagnostic test were ordered, analyzed, and reviewed by me: Yes Radiological Interpretation: Interpreted by me - Risk of complications The pt has a high risk of morbidity or mortality based on: Decision regarding hospitilization or escalation of hosp level of care - Departure Departure Disposition: Observation Clinical Impression: Fever, Right middle lobe pneumonia Condition: Stable Critical Care Time: No Referrals: DALE AMBROSE MD [Primary Care Provider] - Follow up/PCP as directed
[2023-02-25] MEDS ORDERED: Zofran 4 MG/2 ML VIAL IV ONE (16:01)
[2023-02-25] MEDS ORDERED: Sodium Chloride 0.9% 1000 ML 1,000 ML IV STA ×2 (16:01→17:46)
[2023-02-25] MEDS ORDERED: HYDROCODONE-ACETAMIN 2.5-108/5 ML SOLUTION PO STA (16:02)
[2023-02-25 16:29] LABS: Absolute Neutrophil Ct (ANC) 13.41 x10^3/uL (1.4-6.9); BASOPHIL % 0.1 % (0.0-0.4); Basophil (Absolute #) 0.02 x10^3/uL (0-0.4); Eosinophil (Absolute #) 0 x10^3/uL (0-0.5); Hematocrit 33.8 % (35-47); Hemoglobin 10.3 g/dL (12.0-16.0); IMMATURE GRAN # 0.05 x10^3u/L (0.00-0.03); IMMATURE GRAN % 0.3 % (0.00-0.4); Lymphocyte (Absolute #) 0.72 x10^3/uL (1.0-4.6); Mean Cell Volume 78.8 fL (78-100); Mean Corpuscular Hgb Concent. 30.5 g/dL (32-36); Monocyte (Absolute #) 0.21 x10^3/uL (0.0-1.3); Monocytes % 1.5 % (0.0-12.0); Neutrophil % 93.1 % (36.0-66.0); Platelet Count 193 x10^3/uL (150-450); Red Blood Count 4.29 x10^6/uL (4.1-5.4); Red Cell Distribution Width 17.2 % (11.5-14.0); White Blood Count 14.4 x10^3/uL (4.0-10.5)
[2023-02-25] MEDS ORDERED: Zofran 4 MG/2 ML VIAL ONE (16:41)
[2023-02-25 16:42] LABS: Appearance Clear (Clear); Bacteria None Seen /HPF (None Seen); Bilirubin Negative (Negative); Blood Negative (Negative); Epithelial Cells Rare /HPF (None Seen); Glucose, Urine Negative (Negative); Ketones Negative (Negative); Leukocyte Esterase Negative (Negative); Nitrite Negative (Negative); Protein,Urine Dip 100 (Negative); RBC 0-2 /HPF (0-5); Specific Gravity 1.025 (1.005-1.030); Urobilinogen 0.2 mg/dL (0.2); WBC 0-2 /HPF (0-5)
[2023-02-25] MEDS ORDERED: HYDROCODONE-ACETAMIN 2.5-108/5 ML SOLUTION ONE (16:42)
[2023-02-25] MEDS ORDERED: Sodium Chloride 0.9% 1000 ML 1,000 ML ONE ×2 (16:42→17:50)
[2023-02-25 16:44] LABS: ANION GAP 17.8 MEQ/L (5-15); Calcium 8.8 mg/dL (8.4-10.2); Creatinine 1 1.02 mg/dL (0.52-1.04); EST GLOMERULAR FILTRATION RATE 59.6 ML/MIN; Potassium 3.6 mmol/L (3.5-5.1); Total Protein 7.8 g/dL (6.3-8.2)
[2023-02-25 16:45] LABS: ADD URINE CULTURE? NO (NO); Hyaline Casts 20-50 /LPF (0-2)
[2023-02-25] MEDS ORDERED: Levofloxacin 500MG/100ML D5W 500 MG/100 ML BAG IV ONE (16:51)
[2023-02-25] MEDS ORDERED: Levofloxacin 500MG/100ML D5W 500 MG/100 ML BAG IV STA (16:56)
[2023-02-25 17:01] LABS: Lymphocytes 4 % (24-44); Total Cells Counted 100
[2023-02-25 17:03] LABS: INFLUENZA A NEGATIVE (NEGATIVE); INFLUENZA B NEGATIVE (NEGATIVE); RESPIRATORY SYNCTIAL VIRUS NEGATIVE (NEGATIVE); SARS-CoV-2 Xpert Express NEGATIVE (NEGATIVE)
[2023-02-25 17:08] LABS: ANISOCYTOSIS 1+
[2023-02-25 17:11] LABS: Dohle Bodies 1+
[2023-02-25 17:12] LABS: Neutrophils 96 % (36.0-66.0)
[2023-02-25 17:13] LABS: Platelet Estimate NORMAL (NORMAL)
[2023-02-25] MEDS ORDERED: TYLENOL 325 MG PO STA (17:21)
[2023-02-25] MEDS ORDERED: TYLENOL 325 MG ONE ×2 (17:22→17:25)
[2023-02-25] MEDS ORDERED: ROCEPHIN 1 Gm-D5w 50 ml Bag** 1 G/50 ML IVPB IV STA (18:05)
[2023-02-25] MEDS ORDERED: ROCEPHIN 1 Gm-D5w 50 ml Bag** 1 G/50 ML IVPB IV ONE (18:16)
[2023-02-25] MEDS ORDERED: TYLENOL 325 MG PO PRN (20:18)
[2023-02-25] MEDS ORDERED: Zofran 4 MG/2 ML VIAL IV PRN (20:18)
[2023-02-25] MEDS: Sodium Chloride 0.9% 1000 ML 1,000 ML IV SCH (21:19)
[2023-02-25] MEDS ORDERED: Robitussin-Dm Syrup PO PRN (22:38)
--- NOTE | 2023-02-25 22:42 | XRAY ---
Indication: Dyspnea. Comparison: November 21, 2018 Portable chest demonstrates new right upper lobe consolidating/nonconsolidating airspace disease with tiny effusion. Remaining heart, left lung, and bony thorax unremarkable.
--- NOTE | 2023-02-25 22:48 | PCM.HP ---
History of Present Illness - Chief Complaint Chief Complaint: pneumonia Date: 02/25/23 History of Present Illness: Ms. Turner is a 57 year-old female with chronic anemia, hypothyroidism, and a prior PTX who presents wiht chest pain. She admits to three days of symptoms along with fevers ([id number]), cough, chills, shortness of breath, nausea, and vomiting. Upon arrival to [facility], laboratory data was remarkable for a sodium of 131, lactate 4, Cr 1.02, H/H while imaging revealed a wedge like consolidation in the RML. On my examination, she is on 2L NC dening any current fevers, chills, nausea, vomiting, diarrhea, syncope, presyncope, visual changes, orthopnea, PND, odynophagia, dysphagia, belly pain, dysuria, hematuria, melena, hematochezia, or neurological changes. All other systems were reviewed and were negative. - Review of Systems Constitutional: Other (As per HPI) Medications & Allergies Home Medications: Home Medication List Levothyroxine Sodium 100 Mcg [Synthroid 100 Mcg] 100 mcg PO DAILY 02/25/23 [History Confirmed 02/25/23] Allergies/Adverse Reactions: Allergies Allergy/AdvReac Type Severity Reaction Status Date / Time No Known Drug Allergies Allergy Verified 02/25/23 16:07 - Past Medical History Past Medical History: Yes Neurological History: No Pertinent History ENT History: No Pertinent History Cardiac History: No Pertinent History Respiratory History: Bronchitis, Pneumonia Endocrine Medical History: Hypothyroidism Musculoskelatal History: No Pertinent History GI Medical History: No Pertinent History History: No Pertinent History Pyscho-Social History: Anxiety, Depression, Panic Disorder Reproductive Disorders: Other - Female History Are you now?: No - Past Surgical History Past Surgical History: Yes Neuro Surgical History: No Pertinent History Cardiac History: No Pertinent History Respiratory Surgery: No Pertinent History GI Surgical History: No Pertinent History Genitourinary Surgical Hx: No Pertinent History Musculskeletal Surgical Hx: No Pertinent History Female Surgical History: Hysterectomy, Other Other Surgical History: CYST REMOVAL. PARTIAL HYSTER - Social History Smoking Status: Former smoker How long have you smoked: 1 Exposure to second hand smoke: Yes Alcohol: None Drug Use: marijuana - Physical Exam Vital Signs: Vital Signs - 24 hr Temp Pulse Resp BP BP Pulse Ox 02/25/23 21:00 91 L 06/16/23 20:20 98.7 F 88 20 116/58 02/25/23 19:00 100 F 97 H 22 116/59 93 L 02/25/23 18:30 95 H 20 106/68 94 L 02/25/23 18:00 101.8 F 103 H 21 115/56 96 02/25/23 17:22 97 H 18 143/63 98 02/25/23 16:06 86 21 126/76 96 02/25/23 16:05 96 02/25/23 15:36 99.7 F 84 149/72 97 General Appearance: no apparent distress, alert Neurologic Exam: alert, oriented x 3, cooperative, normal mood/affect, nml cerebellar function, nml station & gait, sensation nml, No motor deficits Eye Exam: PERRL/EOMI, eyes nml inspection Ears, Nose, Throat Exam: normal ENT inspection, TMs normal, pharynx normal, moist mucous membranes Neck Exam: normal inspection, non-tender, supple, full range of motion Respiratory Exam: rhonchi Cardiovascular Exam: regular rate/rhythm, normal heart sounds, normal peripheral pulses Gastrointestinal/Abdomen Exam: soft, normal bowel sounds, No tenderness, No mass Back Exam: normal inspection, normal range of motion, No CVA tenderness, No vertebral tenderness Extremity Exam: normal inspection, normal range of motion, pelvis stable Skin Exam: normal color, warm, dry, No rash Lymphatic Exam: No adenopathy Results - Labs Lab/Micro Results: Lab Results-Last 24 Hours 02/25/23 02/25/23 02/25/23 Range/Units 16:06 16:25 16:25 WBC 14.4 H (4.0-10.5) x10^3/uL RBC 4.29 (4.1-5.4) x10^6/uL Hgb 10.3 L (12.0-16.0) g/dL Hct 33.8 L (35-47) % MCV 78.8 (78-100) fL MCH 24.0 L (26-32) pg MCHC 30.5 L (32-36) g/dL RDW 17.2 H (11.5-14.0) % Plt Count 193 (150-450) x10^3/uL MPV 11.0 (7.5-11.0) fL Gran % 93.1 H (36.0-66.0) % Immature Gran % (Auto) 0.3 (0.00-0.4) % Nucleat RBC Rel Count 0.0 (0.00-0.1) % Eos # (Auto) 0 (0-0.5) x10^3/uL Immature Gran # (Auto) 0.05 H (0.00-0.03) x10^3u/L Absolute Lymphs (auto) 0.72 L (1.0-4.6) x10^3/uL Absolute Monos (auto) 0.21 (0.0-1.3) x10^3/uL Absolute Nucleated RBC 0.00 (0.00-0.01) x10^3u/L Lymphocytes % 5.0 L (24.0-44.0) % Monocytes % 1.5 (0.0-12.0) % Eosinophils % 0.0 (0.00-5.0) % Basophils % 0.1 (0.0-0.4) % Absolute Granulocytes 13.41 H (1.4-6.9) x10^3/uL Segmented Neutrophils 96 H (36.0-66.0) % Lymphocytes (Manual) 4 L (24-44) % Basophils # 0.02 (0-0.4) x10^3/uL Dohle Bodies 1+ Platelet Estimate NORMAL (NORMAL) RBC Morphology ABNORMAL Anisocytosis 1+ Sodium (137-145) mmol/L Potassium (3.5-5.1) mmol/L Chloride (98-107) mmol/L Carbon Dioxide (22-30) mmol/L Anion Gap (5-15) MEQ/L BUN (7-17) mg/dL Creatinine (0.52-1.04) mg/dL Estimated GFR ML/MIN Glucose (74-106) mg/dL Lactic Acid 4.0 H (0.4-2.0) Calcium (8.4-10.2) mg/dL Total Bilirubin (0.2-1.3) mg/dL AST (14-36) U/L ALT (0-35) U/L Alkaline Phosphatase (38-126) U/L Serum Total Protein (6.3-8.2) g/dL Albumin (3.5-5.0) g/dL Urine Color Dark Yellow A (Yellow) Urine Appearance Clear (Clear) Urine pH 5.0 (4.6-8.0) Ur Specific Butler 1.025 (1.005-1.030) Urine Protein 100 A (Negative) Urine Glucose (UA) Negative (Negative) mg/dL Urine Ketones Negative (Negative) Urine Blood Negative (Negative) Urine Nitrite Negative (Negative) Urine Bilirubin Negative (Negative) Urine Urobilinogen 0.2 (0.2) mg/dL Ur Leukocyte Esterase Negative (Negative) U Hyaline Cast (Auto) 20-50 (0-2) /LPF Urine Microscopic RBC 0-2 (0-5) /HPF Urine Microscopic WBC 0-2 (0-5) /HPF Ur Epithelial Cells Rare (None Seen) /HPF Urine Bacteria None Seen (None Seen) /HPF Urine Culture Reflexed NO (NO) Monoscreen (NEGATIVE) Influenza Type A Ag (NEGATIVE) Influenza Type B Ag (NEGATIVE) RSV (PCR) (NEGATIVE) SARS-CoV-2 (PCR) (NEGATIVE) Group A Strep Antibody (NEGATIVE) 02/25/23 02/25/23 02/25/23 Range/Units 16:25 16:25 16:25 WBC (4.0-10.5) x10^3/uL RBC (4.1-5.4) x10^6/uL Hgb (12.0-16.0) g/dL Hct (35-47) % MCV (78-100) fL MCH (26-32) pg MCHC (32-36) g/dL RDW (11.5-14.0) % Plt Count (150-450) x10^3/uL MPV (7.5-11.0) fL Gran % (36.0-66.0) % Immature Gran % (Auto) (0.00-0.4) % Nucleat RBC Rel Count (0.00-0.1) % Eos # (Auto) (0-0.5) x10^3/uL Immature Gran # (Auto) (0.00-0.03) x10^3u/L Absolute Lymphs (auto) (1.0-4.6) x10^3/uL Absolute Monos (auto) (0.0-1.3) x10^3/uL Absolute Nucleated RBC (0.00-0.01) x10^3u/L Lymphocytes % (24.0-44.0) % Monocytes % (0.0-12.0) % Eosinophils % (0.00-5.0) % Basophils % (0.0-0.4) % Absolute Granulocytes (1.4-6.9) x10^3/uL Segmented Neutrophils (36.0-66.0) % Lymphocytes (Manual) (24-44) % Basophils # (0-0.4) x10^3/uL Dohle Bodies Platelet Estimate (NORMAL) RBC Morphology Anisocytosis Sodium 131 L (137-145) mmol/L Potassium 3.6 (3.5-5.1) mmol/L Chloride 93 L (98-107) mmol/L Carbon Dioxide 24 (22-30) mmol/L Anion Gap 17.8 H (5-15) MEQ/L BUN 27 H (7-17) mg/dL Creatinine 1.02 (0.52-1.04) mg/dL Estimated GFR 59.6 ML/MIN Glucose 100 (74-106) mg/dL Lactic Acid (0.4-2.0) Calcium 8.8 (8.4-10.2) mg/dL Total Bilirubin 1.00 (0.2-1.3) mg/dL AST 37 H (14-36) U/L ALT 23 (0-35) U/L Alkaline Phosphatase 74 (38-126) U/L Serum Total Protein 7.8 (6.3-8.2) g/dL Albumin 4.0 (3.5-5.0) g/dL Urine Color (Yellow) Urine Appearance (Clear) Urine pH (4.6-8.0) Ur Specific Butler (1.005-1.030) Urine Protein (Negative) Urine Glucose (UA) (Negative) mg/dL Urine Ketones (Negative) Urine Blood (Negative) Urine Nitrite (Negative) Urine Bilirubin (Negative) Urine Urobilinogen (0.2) mg/dL Ur Leukocyte Esterase (Negative) U Hyaline Cast (Auto) (0-2) /LPF Urine Microscopic RBC (0-5) /HPF Urine Microscopic WBC (0-5) /HPF Ur Epithelial Cells (None Seen) /HPF Urine Bacteria (None Seen) /HPF Urine Culture Reflexed (NO) Monoscreen NEGATIVE (NEGATIVE) Influenza Type A Ag (NEGATIVE) Influenza Type B Ag (NEGATIVE) RSV (PCR) (NEGATIVE) SARS-CoV-2 (PCR) (NEGATIVE) Group A Strep Antibody NOT DETECTED (NEGATIVE) 02/25/23 02/25/23 Range/Units 16:25 18:33 WBC (4.0-10.5) x10^3/uL RBC (4.1-5.4) x10^6/uL Hgb (12.0-16.0) g/dL Hct (35-47) % MCV (78-100) fL MCH (26-32) pg MCHC (32-36) g/dL RDW (11.5-14.0) % Plt Count (150-450) x10^3/uL MPV (7.5-11.0) fL Gran % (36.0-66.0) % Immature Gran % (Auto) (0.00-0.4) % Nucleat RBC Rel Count (0.00-0.1) % Eos # (Auto) (0-0.5) x10^3/uL Immature Gran # (Auto) (0.00-0.03) x10^3u/L Absolute Lymphs (auto) (1.0-4.6) x10^3/uL Absolute Monos (auto) (0.0-1.3) x10^3/uL Absolute Nucleated RBC (0.00-0.01) x10^3u/L Lymphocytes % (24.0-44.0) % Monocytes % (0.0-12.0) % Eosinophils % (0.00-5.0) % Basophils % (0.0-0.4) % Absolute Granulocytes (1.4-6.9) x10^3/uL Segmented Neutrophils (36.0-66.0) % Lymphocytes (Manual) (24-44) % Basophils # (0-0.4) x10^3/uL Dohle Bodies Platelet Estimate (NORMAL) RBC Morphology Anisocytosis Sodium (137-145) mmol/L Potassium (3.5-5.1) mmol/L Chloride (98-107) mmol/L Carbon Dioxide (22-30) mmol/L Anion Gap (5-15) MEQ/L BUN (7-17) mg/dL Creatinine (0.52-1.04) mg/dL Estimated GFR ML/MIN Glucose (74-106) mg/dL Lactic Acid 1.9 (0.4-2.0) Calcium (8.4-10.2) mg/dL Total Bilirubin (0.2-1.3) mg/dL AST (14-36) U/L ALT (0-35) U/L Alkaline Phosphatase (38-126) U/L Serum Total Protein (6.3-8.2) g/dL Albumin (3.5-5.0) g/dL Urine Color (Yellow) Urine Appearance (Clear) Urine pH (4.6-8.0) Ur Specific Butler (1.005-1.030) Urine Protein (Negative) Urine Glucose (UA) (Negative) mg/dL Urine Ketones (Negative) Urine Blood (Negative) Urine Nitrite (Negative) Urine Bilirubin (Negative) Urine Urobilinogen (0.2) mg/dL Ur Leukocyte Esterase (Negative) U Hyaline Cast (Auto) (0-2) /LPF Urine Microscopic RBC (0-5) /HPF Urine Microscopic WBC (0-5) /HPF Ur Epithelial Cells (None Seen) /HPF Urine Bacteria (None Seen) /HPF Urine Culture Reflexed (NO) Monoscreen (NEGATIVE) Influenza Type A Ag NEGATIVE (NEGATIVE) Influenza Type B Ag NEGATIVE (NEGATIVE) RSV (PCR) NEGATIVE (NEGATIVE) SARS-CoV-2 (PCR) NEGATIVE (NEGATIVE) Group A Strep Antibody (NEGATIVE) - Radiology Impressions Radiology Exams & Impressions: Radiology Procedures Category Date Time Status CHEST 1 VIEW (PORTABLE) Stat Exams 02/25/23 15:45 Taken CHEST WITHOUT CONTRAST [CT] Stat Exams 02/25/23 22:33 Ordered - Other Procedures and Tests Respiratory Therapy 02/25/23 20:18 Respiratory Therapy Consult ONCE Assessment/Plan (1) Right middle lobe pneumonia Current Visit: Yes Status: Acute Assessment & Plan: ASSESSMENT 1. Acute Hypoxemic Respiratory Failure 2. Pneumonia 3. Elevated Lactate 4. Hyponatremia 5. Chronic Anemia 6. Hypothyroidism 7. Prior Pneumothorax PLAN 1. Wean oxygen to maintain SaO2 > 90%; currently on 2L NC 2. Azithro + Zosyn for Abx; viral panel negative 3. Duonebs q4 4. Antitussives with robitussin and tessalon perles 5. Gentle fluids x 2L 6. CT chest without contrast tonight 7. Lactate trending down Lovenox The entirety of this encounter was done via telemedicine Jeovanny Correa MD Pulmonary and Critical Care Medicine Code(s): J18.9 - PNEUMONIA, UNSPECIFIED ORGANISM Telemedicine Encounter - Telemedicine Encounter Telemedicine Encounter: The entirety of this encounter was performed via Telemedicine"
[2023-02-25] MEDS ORDERED: ENOXAPARIN SODIUM SQ ONE (22:54)
[2023-02-25] MEDS ORDERED: PIPERACILLIN/TAZOBACTAM IV ONE (23:20)
[2023-02-25] MEDS ORDERED: Sodium Chloride 100ML MINI-BAG PLUS 100 ML IV ONE (23:23)
[2023-02-25] MEDS: PIPERACILLIN/TAZOBACTAM 3.375 GM in Sodium Chloride 100ML MINI-BAG PLUS 100 ML IV SCH (23:30)
[2023-02-25] MEDS: DUONEB 0.5-3 MG/3 ml Neb IH SCH (23:43)
[2023-02-26] MEDS: PIPERACILLIN/TAZOBACTAM 3.375 GM in Sodium Chloride 100ML MINI-BAG PLUS 100 ML IV SCH ×5 (00:48→23:08)
--- NOTE | 2023-02-26 01:40 | XRAY ---
CLINICAL HISTORY:abnormal CXR COMPARISON:None; TECHNIQUES:Contiguous axial CT images of the chest were acquired without the administration of intravenous contrast. Coronal and sagittal reconstructions were also obtained; FINDINGS: Patchy consolidation with air bronchograms identified in the right upper lobe predominantly involving anterior and posterior segments. Minimal right-sided pleural effusion with underlying atelectatic changes right lower zone. Bilateral emphysematous changes were identified in both lung [place] predominantly in both upper lobes, however more on the right side. No consolidation or pleural effusion on left side. A few enlarged mediastinal lymph nodes were identified one of the right hilar lymph nodes measures 1.9 x 1.9 cm. An enlarge right supraclavicular lymph node was noted measuring 2.1 x 1.6 cm. Heart and pericardium appear normal. Both lobes of the thyroid gland appear normal. Mild degenerative changes were seen in visualized thoracic spine. Visualized scanned upper abdomen is unremarkable. IMPRESSION: 2-[id number] findings are suggestive of pneumonia consolidation in the right lung field, however, the possibility of the underlying neoplastic lesion can not be excluded Would recommend CT chest with contrast and follow-up for further evaluation. 2-Minimal right-sided pleural effusion with underlying atelectatic changes. 3-A few enlarged mediastinal and right supraclavicular lymphadenopathy. Electronically Signed by: Lorin Cartwright MD. (02/26/2023 00:36:43 REAM CUTTER)
[2023-02-26] MEDS: DUONEB 0.5-3 MG/3 ml Neb IH SCH ×6 (03:45→23:35)
[2023-02-26] MEDS ORDERED: PIPERACILLIN/TAZOBACTAM IV ONE (04:53)
[2023-02-26] MEDS ORDERED: Sodium Chloride 100ML MINI-BAG PLUS 100 ML IV ONE (04:53)
[2023-02-26] MEDS: HYDROCODONE-ACETAMIN 2.5-108/5 ML SOLUTION PO PRN ×2 (05:38→12:14)
[2023-02-26 05:42] LABS: Hematocrit 27.7 % (35-47); Hemoglobin 8.8 g/dL (12.0-16.0); Mean Cell Volume 77.2 fL (78-100); Mean Corpuscular Hemoglobin 24.5 pg (26-32); Mean Corpuscular Hgb Concent. 31.8 g/dL (32-36); Mean Platelet Volume 11.4 fL (7.5-11.0); Platelet Count 158 x10^3/uL (150-450); Red Blood Count 3.59 x10^6/uL (4.1-5.4); Red Cell Distribution Width 17.3 % (11.5-14.0); White Blood Count 14.8 x10^3/uL (4.0-10.5)
[2023-02-26 06:07] LABS: ALKALINE PHOSPHATASE 69 U/L (38-126); ANION GAP 11.8 MEQ/L (5-15); BLOOD UREA NITROGEN 20 mg/dL (7-17); CHLORIDE 102 mmol/L (98-107); Calcium 8.3 mg/dL (8.4-10.2); Carbon Dioxide 23 mmol/L (22-30); Creatinine 1 0.78 mg/dL (0.52-1.04); EST GLOMERULAR FILTRATION RATE > 60.0 ML/MIN; Glucose 93 mg/dL (74-106); NT PRO BNPII 922 pg/mL (<300); Potassium 3.2 mmol/L (3.5-5.1); SGOT/AST 26 U/L (14-36); SGPT/ALT 18 U/L (0-35); SODIUM 133 mmol/L (137-145); Total Protein 6.1 g/dL (6.3-8.2)
[2023-02-26 06:31] LABS: BAND 11 % (0.0-2.0); Lymphocytes 10 % (24-44); Monocyte 2 % (0.0-12.0); Neutrophils 77 % (36.0-66.0); Total Cells Counted 100
[2023-02-26 06:33] LABS: ANISOCYTOSIS 1+; Platelet Estimate NORMAL (NORMAL); Poikilocytosis 1+
[2023-02-26] MEDS: Zithromax 500 MG/ 250 ML NaCl Premix 500 MG/250 ML IVPB IV SCH (08:39)
[2023-02-26] MEDS: Tessalon Perles 100 MG PO PRN (08:54)
[2023-02-26] MEDS: SYNTHROID 100 MCG PO SCH (08:54)
[2023-02-26] MEDS ORDERED: Phenergan 25 MG INJ*** 12.5 MG in Sodium Chloride 0.9% 100 ML IV PRN (09:41)
--- NOTE | 2023-02-26 09:55 | PCM.NOTE ---
Date and Time: 02/26/2349 Subjective Assessment: Reports nausea. Cough and dyspnea have slightly improved. The patient was seen and examined via telemedicine. The entirety of this encounter was performed via telemedicine. The patient consented to this telemedicine encounter. 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, normal mood/affect, nml cerebellar function Skin Exam: normal color Eye Exam: PERRL, EOMI, eyes nml inspection Ears, Nose, Throat Exam: normal ENT inspection Neck Exam: normal inspection, non-tender, supple, full range of motion Respiratory Exam: rhonchi Cardiovascular Exam: regular rate/rhythm, normal heart sounds Gastrointestinal/Abdomen Exam: soft, normal bowel sounds Extremity Exam: normal inspection, normal range of motion Back Exam: normal range of motion OBJECTIVE DATA Vital Signs: Vital Signs - 24 hr Temp Pulse Resp BP BP Pulse Ox 02/26/23 07:41 97.1 F 95 H 18 136/64 90 L 02/26/23 05:40 90 18 89 L 02/26/23 05:07 99 F 90 20 139/63 02/26/23 00:00 99.0 F 86 18 115/59 02/25/23 23:43 86 18 93 L 02/25/23 21:00 91 L 02/25/23 20:20 98.7 F 88 20 116/58 02/25/23 19:00 100 F 97 H 22 116/59 93 L 02/25/23 18:30 95 H 20 106/68 94 L 02/25/23 18:00 101.8 F 103 H 21 115/56 96 02/25/23 17:22 97 H 18 143/63 98 02/25/23 16:06 86 21 126/76 96 02/25/23 16:05 96 02/25/23 15:36 99.7 F 84 149/72 97 Pain Assessment - Last Documented Pain Intensity 5 Pain Scale Used 0-10 Pain Scale Intake and Output: Intake & Output 02/23/23 02/24/23 02/25/23 02/26/23 11:59 11:59 11:59 11:59 Intake Total 908 Output Total 300 Balance 608 Weight 61.6 kg Lab Results: Lab Results-Last 24 Hours 02/25/23 02/25/23 02/25/23 Range/Units 16:06 16:25 16:25 WBC 14.4 H (4.0-10.5) x10^3/uL RBC 4.29 (4.1-5.4) x10^6/uL Hgb 10.3 L (12.0-16.0) g/dL Hct 33.8 L (35-47) % MCV 78.8 (78-100) fL MCH 24.0 L (26-32) pg MCHC 30.5 L (32-36) g/dL RDW 17.2 H (11.5-14.0) % Plt Count 193 (150-450) x10^3/uL MPV 11.0 (7.5-11.0) fL Gran % 93.1 H (36.0-66.0) % Immature Gran % (Auto) 0.3 (0.00-0.4) % Nucleat RBC Rel Count 0.0 (0.00-0.1) % Eos # (Auto) 0 (0-0.5) x10^3/uL Immature Gran # (Auto) 0.05 H (0.00-0.03) x10^3u/L Absolute Lymphs (auto) 0.72 L (1.0-4.6) x10^3/uL Absolute Monos (auto) 0.21 (0.0-1.3) x10^3/uL Absolute Nucleated RBC 0.00 (0.00-0.01) x10^3u/L Lymphocytes % 5.0 L (24.0-44.0) % Monocytes % 1.5 (0.0-12.0) % Eosinophils % 0.0 (0.00-5.0) % Basophils % 0.1 (0.0-0.4) % Absolute Granulocytes 13.41 H (1.4-6.9) x10^3/uL Segmented Neutrophils 96 H (36.0-66.0) % Band Neutrophils (0.0-2.0) % Lymphocytes (Manual) 4 L (24-44) % Monocytes (Manual) (0.0-12.0) % Basophils # 0.02 (0-0.4) x10^3/uL Dohle Bodies 1+ Platelet Estimate NORMAL (NORMAL) RBC Morphology ABNORMAL Poikilocytosis Anisocytosis 1+ Sodium (137-145) mmol/L Potassium (3.5-5.1) mmol/L Chloride (98-107) mmol/L Carbon Dioxide (22-30) mmol/L Anion Gap (5-15) MEQ/L BUN (7-17) mg/dL Creatinine (0.52-1.04) mg/dL Estimated GFR ML/MIN Glucose (74-106) mg/dL Lactic Acid 4.0 H (0.4-2.0) Calcium (8.4-10.2) mg/dL Total Bilirubin (0.2-1.3) mg/dL AST (14-36) U/L ALT (0-35) U/L Alkaline Phosphatase (38-126) U/L NT-Pro-B Natriuret Pep (<300) pg/mL Serum Total Protein (6.3-8.2) g/dL Albumin (3.5-5.0) g/dL Urine Color Dark Yellow A (Yellow) Urine Appearance Clear (Clear) Urine pH 5.0 (4.6-8.0) Ur Specific [facility] 1.025 (1.005-1.030) Urine Protein 100 A (Negative) Urine Glucose (UA) Negative (Negative) mg/dL Urine Ketones Negative (Negative) Urine Blood Negative (Negative) Urine Nitrite Negative (Negative) Urine Bilirubin Negative (Negative) Urine Urobilinogen 0.2 (0.2) mg/dL Ur Leukocyte Esterase Negative (Negative) U Hyaline Cast (Auto) 20-50 (0-2) /LPF Urine Microscopic RBC 0-2 (0-5) /HPF Urine Microscopic WBC 0-2 (0-5) /HPF Ur Epithelial Cells Rare (None Seen) /HPF Urine Bacteria None Seen (None Seen) /HPF Urine Culture Reflexed NO (NO) Monoscreen (NEGATIVE) Influenza Type A Ag (NEGATIVE) Influenza Type B Ag (NEGATIVE) RSV (PCR) (NEGATIVE) SARS-CoV-2 (PCR) (NEGATIVE) Group A Strep Antibody (NEGATIVE) 02/25/23 02/25/23 02/25/23 Range/Units 16:25 16:25 16:25 WBC (4.0-10.5) x10^3/uL RBC (4.1-5.4) x10^6/uL Hgb (12.0-16.0) g/dL Hct (35-47) % MCV (78-100) fL MCH (26-32) pg MCHC (32-36) g/dL RDW (11.5-14.0) % Plt Count (150-450) x10^3/uL MPV (7.5-11.0) fL Gran % (36.0-66.0) % Immature Gran % (Auto) (0.00-0.4) % Nucleat RBC Rel Count (0.00-0.1) % Eos # (Auto) (0-0.5) x10^3/uL Immature Gran # (Auto) (0.00-0.03) x10^3u/L Absolute Lymphs (auto) (1.0-4.6) x10^3/uL Absolute Monos (auto) (0.0-1.3) x10^3/uL Absolute Nucleated RBC (0.00-0.01) x10^3u/L Lymphocytes % (24.0-44.0) % Monocytes % (0.0-12.0) % Eosinophils % (0.00-5.0) % Basophils % (0.0-0.4) % Absolute Granulocytes (1.4-6.9) x10^3/uL Segmented Neutrophils (36.0-66.0) % Band Neutrophils (0.0-2.0) % Lymphocytes (Manual) (24-44) % Monocytes (Manual) (0.0-12.0) % Basophils # (0-0.4) x10^3/uL Dohle Bodies Platelet Estimate (NORMAL) RBC Morphology Poikilocytosis Anisocytosis Sodium 131 L (137-145) mmol/L Potassium 3.6 (3.5-5.1) mmol/L Chloride 93 L (98-107) mmol/L Carbon Dioxide 24 (22-30) mmol/L Anion Gap 17.8 H (5-15) MEQ/L BUN 27 H (7-17) mg/dL Creatinine 1.02 (0.52-1.04) mg/dL Estimated GFR 59.6 ML/MIN Glucose 100 (74-106) mg/dL Lactic Acid (0.4-2.0) Calcium 8.8 (8.4-10.2) mg/dL Total Bilirubin 1.00 (0.2-1.3) mg/dL AST 37 H (14-36) U/L ALT 23 (0-35) U/L Alkaline Phosphatase 74 (38-126) U/L NT-Pro-B Natriuret Pep (<300) pg/mL Serum Total Protein 7.8 (6.3-8.2) g/dL Albumin 4.0 (3.5-5.0) g/dL Urine Color (Yellow) Urine Appearance (Clear) Urine pH (4.6-8.0) Ur Specific [facility] (1.005-1.030) Urine Protein (Negative) Urine Glucose (UA) (Negative) mg/dL Urine Ketones (Negative) Urine Blood (Negative) Urine Nitrite (Negative) Urine Bilirubin (Negative) Urine Urobilinogen (0.2) mg/dL Ur Leukocyte Esterase (Negative) U Hyaline Cast (Auto) (0-2) /LPF Urine Microscopic RBC (0-5) /HPF Urine Microscopic WBC (0-5) /HPF Ur Epithelial Cells (None Seen) /HPF Urine Bacteria (None Seen) /HPF Urine Culture Reflexed (NO) Monoscreen NEGATIVE (NEGATIVE) Influenza Type A Ag (NEGATIVE) Influenza Type B Ag (NEGATIVE) RSV (PCR) (NEGATIVE) SARS-CoV-2 (PCR) (NEGATIVE) Group A Strep Antibody NOT DETECTED (NEGATIVE) 02/25/23 02/25/23 02/26/23 Range/Units 16:25 18:33 05:21 WBC 14.8 H (4.0-10.5) x10^3/uL RBC 3.59 L (4.1-5.4) x10^6/uL Hgb 8.8 L (12.0-16.0) g/dL Hct 27.7 L (35-47) % MCV 77.2 L (78-100) fL MCH 24.5 L (26-32) pg MCHC 31.8 L (32-36) g/dL RDW 17.3 H (11.5-14.0) % Plt Count 158 (150-450) x10^3/uL MPV 11.4 H (7.5-11.0) fL Gran % (36.0-66.0) % Immature Gran % (Auto) (0.00-0.4) % Nucleat RBC Rel Count (0.00-0.1) % Eos # (Auto) (0-0.5) x10^3/uL Immature Gran # (Auto) (0.00-0.03) x10^3u/L Absolute Lymphs (auto) (1.0-4.6) x10^3/uL Absolute Monos (auto) (0.0-1.3) x10^3/uL Absolute Nucleated RBC (0.00-0.01) x10^3u/L Lymphocytes % (24.0-44.0) % Monocytes % (0.0-12.0) % Eosinophils % (0.00-5.0) % Basophils % (0.0-0.4) % Absolute Granulocytes (1.4-6.9) x10^3/uL Segmented Neutrophils 77 H (36.0-66.0) % Band Neutrophils 11 H (0.0-2.0) % Lymphocytes (Manual) 10 L (24-44) % Monocytes (Manual) 2 (0.0-12.0) % Basophils # (0-0.4) x10^3/uL Dohle Bodies Platelet Estimate NORMAL (NORMAL) RBC Morphology ABNORMAL Poikilocytosis 1+ Anisocytosis 1+ Sodium (137-145) mmol/L Potassium (3.5-5.1) mmol/L Chloride (98-107) mmol/L Carbon Dioxide (22-30) mmol/L Anion Gap (5-15) MEQ/L BUN (7-17) mg/dL Creatinine (0.52-1.04) mg/dL Estimated GFR ML/MIN Glucose (74-106) mg/dL Lactic Acid 1.9 (0.4-2.0) Calcium (8.4-10.2) mg/dL Total Bilirubin (0.2-1.3) mg/dL AST (14-36) U/L ALT (0-35) U/L Alkaline Phosphatase (38-126) U/L NT-Pro-B Natriuret Pep (<300) pg/mL Serum Total Protein (6.3-8.2) g/dL Albumin (3.5-5.0) g/dL Urine Color (Yellow) Urine Appearance (Clear) Urine pH (4.6-8.0) Ur Specific [facility] (1.005-1.030) Urine Protein (Negative) Urine Glucose (UA) (Negative) mg/dL Urine Ketones (Negative) Urine Blood (Negative) Urine Nitrite (Negative) Urine Bilirubin (Negative) Urine Urobilinogen (0.2) mg/dL Ur Leukocyte Esterase (Negative) U Hyaline Cast (Auto) (0-2) /LPF Urine Microscopic RBC (0-5) /HPF Urine Microscopic WBC (0-5) /HPF Ur Epithelial Cells (None Seen) /HPF Urine Bacteria (None Seen) /HPF Urine Culture Reflexed (NO) Monoscreen (NEGATIVE) Influenza Type A Ag NEGATIVE (NEGATIVE) Influenza Type B Ag NEGATIVE (NEGATIVE) RSV (PCR) NEGATIVE (NEGATIVE) SARS-CoV-2 (PCR) NEGATIVE (NEGATIVE) Group A Strep Antibody (NEGATIVE) 02/26/23 Range/Units 05:21 WBC (4.0-10.5) x10^3/uL RBC (4.1-5.4) x10^6/uL Hgb (12.0-16.0) g/dL Hct (35-47) % MCV (78-100) fL MCH (26-32) pg MCHC (32-36) g/dL RDW (11.5-14.0) % Plt Count (150-450) x10^3/uL MPV (7.5-11.0) fL Gran % (36.0-66.0) % Immature Gran % (Auto) (0.00-0.4) % Nucleat RBC Rel Count (0.00-0.1) % Eos # (Auto) (0-0.5) x10^3/uL Immature Gran # (Auto) (0.00-0.03) x10^3u/L Absolute Lymphs (auto) (1.0-4.6) x10^3/uL Absolute Monos (auto) (0.0-1.3) x10^3/uL Absolute Nucleated RBC (0.00-0.01) x10^3u/L Lymphocytes % (24.0-44.0) % Monocytes % (0.0-12.0) % Eosinophils % (0.00-5.0) % Basophils % (0.0-0.4) % Absolute Granulocytes (1.4-6.9) x10^3/uL Segmented Neutrophils (36.0-66.0) % Band Neutrophils (0.0-2.0) % Lymphocytes (Manual) (24-44) % Monocytes (Manual) (0.0-12.0) % Basophils # (0-0.4) x10^3/uL Dohle Bodies Platelet Estimate (NORMAL) RBC Morphology Poikilocytosis Anisocytosis Sodium 133 L (137-145) mmol/L Potassium 3.2 L (3.5-5.1) mmol/L Chloride 102 (98-107) mmol/L Carbon Dioxide 23 (22-30) mmol/L Anion Gap 11.8 (5-15) MEQ/L BUN 20 H (7-17) mg/dL Creatinine 0.78 (0.52-1.04) mg/dL Estimated GFR > 60.0 ML/MIN Glucose 93 (74-106) mg/dL Lactic Acid (0.4-2.0) Calcium 8.3 L (8.4-10.2) mg/dL Total Bilirubin 0.60 (0.2-1.3) mg/dL AST 26 (14-36) U/L ALT 18 (0-35) U/L Alkaline Phosphatase 69 (38-126) U/L NT-Pro-B Natriuret Pep 922 (<300) pg/mL Serum Total Protein 6.1 L (6.3-8.2) g/dL Albumin 3.0 L (3.5-5.0) g/dL Urine Color (Yellow) Urine Appearance (Clear) Urine pH (4.6-8.0) Ur Specific [facility] (1.005-1.030) Urine Protein (Negative) Urine Glucose (UA) (Negative) mg/dL Urine Ketones (Negative) Urine Blood (Negative) Urine Nitrite (Negative) Urine Bilirubin (Negative) Urine Urobilinogen (0.2) mg/dL Ur Leukocyte Esterase (Negative) U Hyaline Cast (Auto) (0-2) /LPF Urine Microscopic RBC (0-5) /HPF Urine Microscopic WBC (0-5) /HPF Ur Epithelial Cells (None Seen) /HPF Urine Bacteria (None Seen) /HPF Urine Culture Reflexed (NO) Monoscreen (NEGATIVE) Influenza Type A Ag (NEGATIVE) Influenza Type B Ag (NEGATIVE) RSV (PCR) (NEGATIVE) SARS-CoV-2 (PCR) (NEGATIVE) Group A Strep Antibody (NEGATIVE) Radiology Exams: Radiology Procedures Category Date Time Status CHEST 1 VIEW (PORTABLE) Stat Exams 02/25/23 15:45 Completed CHEST WITHOUT CONTRAST [CT] Stat Exams 02/25/23 22:33 Completed Assessment/Plan (1) Right middle lobe pneumonia Current Visit: Yes Status: Acute Assessment & Plan: GNR bacteremia noted. On IV antibiotics. Continue current regimen and monitor clinical response and culture finalization. CT scan confirm underlying pneumonia but will need repeat outpatient CT scan to rule out occult malignancy. Code(s): J18.9 - PNEUMONIA, UNSPECIFIED ORGANISM
[2023-02-26] MEDS ORDERED: ROCEPHIN 1 Gm-D5w 50 ml Bag** 1 G/50 ML IVPB IV SCH (10:00)
[2023-02-26] MEDS: Acidophilus TABLET PO SCH (12:09)
[2023-02-26] MEDS: Sodium Chloride 0.9% 1000 ML 1,000 ML IV SCH (17:26)
[2023-02-27] MEDS: DUONEB 0.5-3 MG/3 ml Neb IH SCH ×6 (03:15→22:28)
[2023-02-27] MEDS: PIPERACILLIN/TAZOBACTAM 3.375 GM in Sodium Chloride 100ML MINI-BAG PLUS 100 ML IV SCH ×4 (05:30→23:18)
[2023-02-27 06:13] LABS: Absolute Neutrophil Ct (ANC) 12.53 x10^3/uL (1.4-6.9); BASOPHIL % 0.1 % (0.0-0.4); Basophil (Absolute #) 0.01 x10^3/uL (0-0.4); Eosinophil (Absolute #) 0 x10^3/uL (0-0.5); Hematocrit 26.4 % (35-47); IMMATURE GRAN # 0.18 x10^3u/L (0.00-0.03); IMMATURE GRAN % 1.2 % (0.00-0.4); Lymphocyte (Absolute #) 1.28 x10^3/uL (1.0-4.6); Lymphocytes % 8.8 % (24.0-44.0); Mean Cell Volume 78.8 fL (78-100); Mean Corpuscular Hemoglobin 23.9 pg (26-32); Mean Corpuscular Hgb Concent. 30.3 g/dL (32-36); Mean Platelet Volume 10.8 fL (7.5-11.0); Monocyte (Absolute #) 0.49 x10^3/uL (0.0-1.3); Monocytes % 3.4 % (0.0-12.0); Neutrophil % 86.5 % (36.0-66.0); Platelet Count 170 x10^3/uL (150-450); Red Blood Count 3.35 x10^6/uL (4.1-5.4); Red Cell Distribution Width 17.2 % (11.5-14.0); White Blood Count 14.5 x10^3/uL (4.0-10.5)
[2023-02-27 06:33] LABS: ANION GAP 10.3 MEQ/L (5-15); BLOOD UREA NITROGEN 12 mg/dL (7-17); CHLORIDE 101 mmol/L (98-107); Calcium 8.3 mg/dL (8.4-10.2); Carbon Dioxide 27 mmol/L (22-30); Creatinine 1 0.71 mg/dL (0.52-1.04); EST GLOMERULAR FILTRATION RATE > 60.0 ML/MIN; Glucose 96 mg/dL (74-106); Potassium 3.1 mmol/L (3.5-5.1); SODIUM 135 mmol/L (137-145)
[2023-02-27] MEDS: Acidophilus TABLET PO SCH (08:19)
[2023-02-27] MEDS: SYNTHROID 100 MCG PO SCH (08:19)
[2023-02-27] MEDS: Zithromax 500 MG/ 250 ML NaCl Premix 500 MG/250 ML IVPB IV SCH (08:19)
--- NOTE | 2023-02-27 11:57 | PCM.NOTE ---
Date and Time: 02/27/23 1152 Subjective Assessment: Cough and dyspnea are improving. The patient was seen and examined via telemedicine. The entirety of this encounter was performed via telemedicine. The patient consented to this telemedicine encounter. 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, nml cerebellar function Skin Exam: normal color Eye Exam: PERRL, EOMI, eyes nml inspection Ears, Nose, Throat Exam: normal ENT inspection Neck Exam: normal inspection, non-tender, supple, full range of motion Respiratory Exam: rhonchi Cardiovascular Exam: regular rate/rhythm, normal heart sounds Gastrointestinal/Abdomen Exam: soft, normal bowel sounds Extremity Exam: normal inspection, normal range of motion Back Exam: normal range of motion OBJECTIVE DATA Vital Signs: Vital Signs - 24 hr Temp Pulse Resp BP Pulse Ox 02/27/23 11:38 86 22 94 L 02/27/23 07:06 97.8 F 89 20 157/81 94 L 02/27/23 06:55 91 L 02/27/23 06:46 89 20 87 L 02/27/23 04:00 98.9 F 91 H 22 128/61 89 L 02/27/23 03:16 94 H 20 93 L 02/26/23 23:36 98.8 F 88 20 143/65 90 L 02/26/23 20:00 98.0 F 85 22 139/64 90 L 02/26/23 19:22 89 18 90 L 02/26/23 16:00 97.1 F 87 18 132/63 90 L 02/26/23 14:59 90 20 89 L Pain Assessment - Last Documented Pain Intensity 0 Pain Scale Used 0-10 Pain Scale Intake and Output: Intake & Output 02/24/23 02/25/23 02/26/23 02/27/23 11:59 11:59 11:59 11:59 Intake Total 908 720 Output Total 300 250 Balance 608 470 Weight 62 kg 62.1 kg Lab Results: Lab Results-Last 24 Hours 02/27/23 02/27/23 Range/Units 05:43 05:43 WBC 14.5 H (4.0-10.5) x10^3/uL RBC 3.35 L (4.1-5.4) x10^6/uL Hgb 8.0 L (12.0-16.0) g/dL Hct 26.4 L (35-47) % MCV 78.8 (78-100) fL MCH 23.9 L (26-32) pg MCHC 30.3 L (32-36) g/dL RDW 17.2 H (11.5-14.0) % Plt Count 170 (150-450) x10^3/uL MPV 10.8 (7.5-11.0) fL Gran % 86.5 H (36.0-66.0) % Immature Gran % (Auto) 1.2 H (0.00-0.4) % Nucleat RBC Rel Count 0.0 (0.00-0.1) % Eos # (Auto) 0 (0-0.5) x10^3/uL Immature Gran # (Auto) 0.18 H (0.00-0.03) x10^3u/L Absolute Lymphs (auto) 1.28 (1.0-4.6) x10^3/uL Absolute Monos (auto) 0.49 (0.0-1.3) x10^3/uL Absolute Nucleated RBC 0.00 (0.00-0.01) x10^3u/L Lymphocytes % 8.8 L (24.0-44.0) % Monocytes % 3.4 (0.0-12.0) % Eosinophils % 0.0 (0.00-5.0) % Basophils % 0.1 (0.0-0.4) % Absolute Granulocytes 12.53 H (1.4-6.9) x10^3/uL Basophils # 0.01 (0-0.4) x10^3/uL Sodium 135 L (137-145) mmol/L Potassium 3.1 L (3.5-5.1) mmol/L Chloride 101 (98-107) mmol/L Carbon Dioxide 27 (22-30) mmol/L Anion Gap 10.3 (5-15) MEQ/L BUN 12 (7-17) mg/dL Creatinine 0.71 (0.52-1.04) mg/dL Estimated GFR > 60.0 ML/MIN Glucose 96 (74-106) mg/dL Calcium 8.3 L (8.4-10.2) mg/dL Radiology Exams: Radiology Procedures Category Date Time Status CHEST 1 VIEW (PORTABLE) Stat Exams 02/25/23 15:45 Completed CHEST WITHOUT CONTRAST [CT] Stat Exams 02/25/23 22:33 Completed Multi-Disciplinary Progress Notes: Multi-Disciplinary Progress Notes 02/27/23 06:55 Respiratory Note by Dia Chang PT'S O2 SAT ON ROOM AIR WHILE AT REST WAS 87%. PT PLACED ON 2LPM VIA NASAL CANNULA WHILE AT REST BUT O2 ONLY INCREASED TO 88%. OXYGEN INCREASED TO 3LPM VIA NASAL CANNULA WHILE AT REST AND O2 SAT ONLY INCREASED TO 89%. OXYGEN INCREASED TO 4LPM VIA NASAL CANNULA WHILE AT REST AND O2 SAT INCREASED TO 91%. Initialized on 02/27/23 06:55 - END OF NOTE Assessment/Plan (1) Right middle lobe pneumonia Current Visit: Yes Status: Acute Assessment & Plan: Gram negative amarilis bacteremia. Awaiting finalization of culture ID. Will need total 14 days antibiotics. Continue current empiric regimen. Follow repeat surveillance culture. Code(s): J18.9 - PNEUMONIA, UNSPECIFIED ORGANISM
[2023-02-27] MEDS: Klor Con PO SCH ×4 (12:17→18:17)
[2023-02-27] MEDS: Tessalon Perles 100 MG PO PRN (13:15)
[2023-02-28] MEDS: DUONEB 0.5-3 MG/3 ml Neb IH SCH ×6 (03:12→23:25)
[2023-02-28] MEDS: Tessalon Perles 100 MG PO PRN (05:03)
[2023-02-28] MEDS: PIPERACILLIN/TAZOBACTAM 3.375 GM in Sodium Chloride 100ML MINI-BAG PLUS 100 ML IV SCH ×4 (05:04→23:20)
[2023-02-28 05:33] LABS: Absolute Neutrophil Ct (ANC) 7.43 x10^3/uL (1.4-6.9); BASOPHIL % 0.2 % (0.0-0.4); Basophil (Absolute #) 0.02 x10^3/uL (0-0.4); Eosinophil % 0.7 % (0.00-5.0); Eosinophil (Absolute #) 0.07 x10^3/uL (0-0.5); Hemoglobin 7.6 g/dL (12.0-16.0); IMMATURE GRAN # 0.25 x10^3u/L (0.00-0.03); IMMATURE GRAN % 2.4 % (0.00-0.4); Lymphocyte (Absolute #) 1.83 x10^3/uL (1.0-4.6); Lymphocytes % 17.9 % (24.0-44.0); Mean Cell Volume 78.6 fL (78-100); Mean Corpuscular Hemoglobin 23.9 pg (26-32); Mean Corpuscular Hgb Concent. 30.4 g/dL (32-36); Mean Platelet Volume 10.7 fL (7.5-11.0); Monocyte (Absolute #) 0.61 x10^3/uL (0.0-1.3); Neutrophil % 72.8 % (36.0-66.0); Platelet Count 173 x10^3/uL (150-450); Red Blood Count 3.18 x10^6/uL (4.1-5.4); Red Cell Distribution Width 17.4 % (11.5-14.0); White Blood Count 10.2 x10^3/uL (4.0-10.5)
[2023-02-28 05:52] LABS: ANION GAP 9.3 MEQ/L (5-15); BLOOD UREA NITROGEN 8 mg/dL (7-17); CHLORIDE 102 mmol/L (98-107); Calcium 7.8 mg/dL (8.4-10.2); Carbon Dioxide 28 mmol/L (22-30); Creatinine 1 0.57 mg/dL (0.52-1.04); EST GLOMERULAR FILTRATION RATE > 60.0 ML/MIN; Glucose 91 mg/dL (74-106); MAGNESIUM 1.8 mg/dL (1.6-2.3); Potassium 3.1 mmol/L (3.5-5.1); SODIUM 136 mmol/L (137-145)
[2023-02-28] MEDS: SYNTHROID 100 MCG PO SCH (08:19)
[2023-02-28] MEDS: Acidophilus TABLET PO SCH (08:19)
[2023-02-28] MEDS: Zithromax 500 MG/ 250 ML NaCl Premix 500 MG/250 ML IVPB IV SCH (08:19)
[2023-02-28] MEDS ORDERED: PIPERACILLIN/TAZOBACTAM IV ONE (16:39)
[2023-02-28] MEDS: Miralax Powder 17GM PACKET PO PRN (20:28)
[2023-02-28] MEDS: Docusate Sodium 100 MG PO SCH (21:52)
--- NOTE | 2023-02-28 23:50 | PCM.NOTE ---
Date and Time: 02/28/23 1445 Subjective Assessment: No acute events overnight. Feels a little better; weaned oxygen from 4 to 2L. Still feels weak, but able to walk around the room. Poor PO intake. Note, entirety of encounter took place via telemedicine, to which patient consented. - Review of Systems All Other Systems: Reviewed and Negative Objective Exam General Appearance: no apparent distress Neurologic Exam: alert, oriented x 3 Respiratory Exam: normal breath sounds, other (on 2L oxygen by NC), No respiratory distress Cardiovascular Exam: regular rate/rhythm, normal heart sounds Gastrointestinal/Abdomen Exam: soft, No tenderness, No distention OBJECTIVE DATA Vital Signs: Vital Signs - 24 hr Temp Pulse Resp BP Pulse Ox 02/28/23 23:25 90 16 90 L 02/28/23 19:53 98.9 F 95 H 16 193/86 94 L 02/28/23 19:35 94 H 18 94 L 02/28/23 16:28 85 18 95 02/28/23 16:00 97.8 F 91 H 16 154/71 92 L 02/28/23 11:54 97.8 F 86 16 153/73 93 L 02/28/23 10:58 93 H 18 94 L 02/28/23 07:33 98.2 F 99 H 16 127/75 90 L 02/28/23 06:40 82 20 88 L 02/28/23 04:00 97.7 F 83 20 139/65 91 L 02/28/23 03:12 78 20 93 L 02/28/23 00:00 98.0 F 87 20 148/67 92 L Pain Assessment - Last Documented Pain Intensity 0 Pain Scale Used 0-10 Pain Scale Intake and Output: Intake & Output 02/26/23 02/27/23 02/28/23 03/01/23 11:59 11:59 11:59 11:59 Intake Total 611 991 8018 2340 Output Total 300 250 500 Balance 241 470 3117 1840 Weight 62 kg 62.1 kg 62.3 kg Lab Results: Lab Results-Last 24 Hours 02/28/23 02/28/23 Range/Units 04:30 04:30 WBC 10.2 (4.0-10.5) x10^3/uL RBC 3.18 L (4.1-5.4) x10^6/uL Hgb 7.6 L (12.0-16.0) g/dL Hct 25.0 L (35-47) % MCV 78.6 (78-100) fL MCH 23.9 L (26-32) pg MCHC 30.4 L (32-36) g/dL RDW 17.4 H (11.5-14.0) % Plt Count 173 (150-450) x10^3/uL MPV 10.7 (7.5-11.0) fL Gran % 72.8 H (36.0-66.0) % Immature Gran % (Auto) 2.4 H (0.00-0.4) % Nucleat RBC Rel Count 0.0 (0.00-0.1) % Eos # (Auto) 0.07 (0-0.5) x10^3/uL Immature Gran # (Auto) 0.25 H (0.00-0.03) x10^3u/L Absolute Lymphs (auto) 1.83 (1.0-4.6) x10^3/uL Absolute Monos (auto) 0.61 (0.0-1.3) x10^3/uL Absolute Nucleated RBC 0.00 (0.00-0.01) x10^3u/L Lymphocytes % 17.9 L (24.0-44.0) % Monocytes % 6.0 (0.0-12.0) % Eosinophils % 0.7 (0.00-5.0) % Basophils % 0.2 (0.0-0.4) % Absolute Granulocytes 7.43 H (1.4-6.9) x10^3/uL Basophils # 0.02 (0-0.4) x10^3/uL Sodium 136 L (137-145) mmol/L Potassium 3.1 L (3.5-5.1) mmol/L Chloride 102 (98-107) mmol/L Carbon Dioxide 28 (22-30) mmol/L Anion Gap 9.3 (5-15) MEQ/L BUN 8 (7-17) mg/dL Creatinine 0.57 (0.52-1.04) mg/dL Estimated GFR > 60.0 ML/MIN Glucose 91 (74-106) mg/dL Calcium 7.8 L (8.4-10.2) mg/dL Magnesium 1.8 (1.6-2.3) mg/dL Blood Cx 02/25 - gram neg rods on gram stain, cultures still negative Multi-Disciplinary Progress Notes: Multi-Disciplinary Progress Notes 02/28/23 11:00 (created 02/28/23 13:44) Case Management Note by Jailyn Roman PATIENT NOTED AT REST 88% ON ROOM AIR, PLACED BACK ON 2L/NC SATS ARTEIMO TO 92% Initialized on 02/28/23 13:44 - END OF NOTE Assessment/Plan (1) Right middle lobe pneumonia Current Visit: Yes Status: Acute Assessment & Plan: With associated bacteremia: GNR seen on gram stain in blood culture, but still pending identification and susceptibility testing. Appears to be clinically improving, weaned oxygen to 2L. - continue empiric Zosyn, Azithromcyin - follow up identification of bacteria in blood cultures - follow up repeat cultures form 02/26 for clearance - wean FiO2 to maintain SpO2 91-94% Code(s): J18.9 - PNEUMONIA, UNSPECIFIED ORGANISM
[2023-03-01] MEDS: Miralax Powder 17GM PACKET PO PRN (03:31)
[2023-03-01] MEDS: DUONEB 0.5-3 MG/3 ml Neb IH SCH ×3 (03:33→11:11)
[2023-03-01 05:06] LABS: Hematocrit 27.6 % (35-47); Hemoglobin 8.7 g/dL (12.0-16.0); Mean Cell Volume 77.3 fL (78-100); Mean Corpuscular Hemoglobin 24.4 pg (26-32); Mean Corpuscular Hgb Concent. 31.5 g/dL (32-36); Mean Platelet Volume 10.8 fL (7.5-11.0); Platelet Count 217 x10^3/uL (150-450); Red Blood Count 3.57 x10^6/uL (4.1-5.4); Red Cell Distribution Width 17.2 % (11.5-14.0); White Blood Count 9.7 x10^3/uL (4.0-10.5)
[2023-03-01 05:17] LABS: ANION GAP 10.9 MEQ/L (5-15); BLOOD UREA NITROGEN 4 mg/dL (7-17); CHLORIDE 96 mmol/L (98-107); Calcium 8.2 mg/dL (8.4-10.2); Carbon Dioxide 29 mmol/L (22-30); Creatinine 1 0.52 mg/dL (0.52-1.04); EST GLOMERULAR FILTRATION RATE > 60.0 ML/MIN; Glucose 107 mg/dL (74-106); MAGNESIUM 1.8 mg/dL (1.6-2.3); SODIUM 133 mmol/L (137-145)
[2023-03-01] MEDS ORDERED: MAGNESIUM SULF 2 G/50 ML BAG 2 GM/50 ML PIGGYBACK IV ONE (05:33)
[2023-03-01] MEDS ORDERED: Klor Con PO ONE ×2 (05:33→08:15)
[2023-03-01] MEDS: PIPERACILLIN/TAZOBACTAM 3.375 GM in Sodium Chloride 100ML MINI-BAG PLUS 100 ML IV SCH ×3 (05:44→18:58)
[2023-03-01] MEDS: Zithromax 500 MG/ 250 ML NaCl Premix 500 MG/250 ML IVPB IV SCH (08:16)
[2023-03-01] MEDS: Docusate Sodium 100 MG PO SCH (08:18)
[2023-03-01] MEDS: Acidophilus TABLET PO SCH (08:18)
[2023-03-01] MEDS: SYNTHROID 100 MCG PO SCH (08:18)
--- NOTE | 2023-03-01 11:49 | PCM.NOTE ---
Date and Time: 03/01/23 1133 Subjective Assessment: No acute events overnight. Remains on 2L oxygen. Feels tired today, but breathing more easily. Able to talk to the nursing station and down to the cafeteria without oxygen, although her SpO2 was 87% when she returned. Still eating poorly. [place] constipated; had a small BM this morning after getting Miralax. - Review of Systems All Other Systems: Reviewed and Negative Objective Exam General Appearance: no apparent distress Neurologic Exam: alert, oriented x 3, normal mood/affect Respiratory Exam: normal breath sounds, lungs clear, other (on 2L NC), No wheezing Cardiovascular Exam: regular rate/rhythm, normal heart sounds, No murmur OBJECTIVE DATA Vital Signs: Vital Signs - 24 hr Temp Pulse Resp BP Pulse Ox 03/01/23 11:14 90 16 93 L 03/01/23 06:55 98.6 F 87 20 145/67 90 L 03/01/23 06:01 90 18 90 L 03/01/23 04:00 98.6 F 90 16 164/69 93 L 03/01/23 03:33 90 18 93 L 03/01/23 00:00 97.7 F 97 H 18 189/82 90 L 02/28/23 23:25 90 16 90 L 02/28/23 19:53 98.9 F 95 H 16 193/86 94 L 02/28/23 19:35 94 H 18 94 L 02/28/23 16:28 85 18 95 02/28/23 16:00 97.8 F 91 H 16 154/71 92 L 02/28/23 11:54 97.8 F 86 16 153/73 93 L Pain Assessment - Last Documented Pain Intensity 3 Pain Scale Used 0-10 Pain Scale Intake and Output: Intake & Output 02/26/23 02/27/23 02/28/23 03/01/23 11:59 11:59 11:59 11:59 Intake Total 112 665 4059 3160 Output Total 300 250 500 Balance 011 291 0851 2660 Weight 62 kg 62.1 kg 62.3 kg 62.3 kg Lab Results: Lab Results-Last 24 Hours 03/01/23 03/01/23 03/01/23 Range/Units 04:20 04:20 05:24 WBC 9.7 (4.0-10.5) x10^3/uL RBC 3.57 L (4.1-5.4) x10^6/uL Hgb 8.7 L (12.0-16.0) g/dL Hct 27.6 L (35-47) % MCV 77.3 L (78-100) fL MCH 24.4 L (26-32) pg MCHC 31.5 L (32-36) g/dL RDW 17.2 H (11.5-14.0) % Plt Count 217 (150-450) x10^3/uL MPV 10.8 (7.5-11.0) fL Sodium 133 L (137-145) mmol/L Potassium 3.0 L* (3.5-5.1) mmol/L Chloride 96 L (98-107) mmol/L Carbon Dioxide 29 (22-30) mmol/L Anion Gap 10.9 (5-15) MEQ/L BUN 4 L (7-17) mg/dL Creatinine 0.52 (0.52-1.04) mg/dL Estimated GFR > 60.0 ML/MIN Glucose 107 H (74-106) mg/dL Calcium 8.2 L (8.4-10.2) mg/dL Magnesium 1.8 1.8 (1.6-2.3) mg/dL Blood Cx 02/25 - Gram neg rods on gram stain, still pending ID and susceptiblity Blood Cx 02/26 - no growth to date Multi-Disciplinary Progress Notes: Multi-Disciplinary Progress Notes 03/01/23 10:09 Case Management Note by Jailyn Roman PATIENT VERY ABRASIVE TO STAFF- FREQUENT, CONSTANT COMPLAINTS STAFF-DIRECTOR AWARE. DO NOT ANTICIPATE ANY CHANGES IN DC PLAN AT THIS TIME. PATIENT CURRENTLY ON 2L/NC. WHEN THIS INTEGRATION LEAD BROUGHT UP HOME OXYGEN 02/28- PATIENT VOICED SHE IS NOT INTERESTED IN DCING HOME ON IT. IF NEEDED AT TIME OF DC- WILL APPROACH SUBJECT AGAIN Initialized on 03/01/23 10:09 - END OF NOTE Assessment/Plan (1) Right middle lobe pneumonia Current Visit: Yes Status: Acute Assessment & Plan: 57 y/o F with h/o chronic anemia, hypothyroidism, and prior pneumothorax, who presents with pneumonia and bacteremia . ## RML Pneumonia - with acute hypoxic respiratory failure. Weaned to 2L oxygen, although ambulating off oxygen (with mild hypoxia.) - continue empiric Zosyn, Azithromcyin - wean FiO2 to maintain SpO2 91-94% - continue PRN Guaifenesin DM, Tessalon - continue DuoNeb, change to q4h PRN ## Bacteremia - gram neg rods seen on initial gram stain, but still pending identification and susceptibility testing. - follow up identification of bacteria in blood cultures - follow up repeat cultures form 02/26 for clearance ## Hypokalemia - give KCl 40 mEq PO - repeat BMP in AM ## Constipation - no BM in 6 days, improved this morning - continue Docusate 100 BID - continue Miralax PRN daily ## Hypothyroidism - continue home levothyroxine Code Status: Full code Prophylaxis: Ambulatory Entirety of encounter took place via telemedicine, to which patient consented. Code(s): J18.9 - PNEUMONIA, UNSPECIFIED ORGANISM
[2023-03-01] MEDS ORDERED: DUONEB 0.5-3 MG/3 ml Neb IH PRN (11:52)
[2023-03-02] MEDS: Docusate Sodium 100 MG PO SCH ×4 (00:43→20:46)
[2023-03-02] MEDS: PIPERACILLIN/TAZOBACTAM 3.375 GM in Sodium Chloride 100ML MINI-BAG PLUS 100 ML IV SCH ×5 (01:50→20:11)
[2023-03-02 05:22] LABS: Hematocrit 28.2 % (35-47); Hemoglobin 8.7 g/dL (12.0-16.0); Mean Cell Volume 77.7 fL (78-100); Mean Corpuscular Hgb Concent. 30.9 g/dL (32-36); Mean Platelet Volume 10.5 fL (7.5-11.0); Platelet Count 270 x10^3/uL (150-450); Red Blood Count 3.63 x10^6/uL (4.1-5.4); Red Cell Distribution Width 17.2 % (11.5-14.0); White Blood Count 9.7 x10^3/uL (4.0-10.5)
[2023-03-02 05:37] LABS: ANION GAP 11.4 MEQ/L (5-15); BLOOD UREA NITROGEN 7 mg/dL (7-17); CHLORIDE 101 mmol/L (98-107); Calcium 8.6 mg/dL (8.4-10.2); Carbon Dioxide 25 mmol/L (22-30); EST GLOMERULAR FILTRATION RATE > 60.0 ML/MIN; Glucose 96 mg/dL (74-106); SODIUM 134 mmol/L (137-145)
[2023-03-02] MEDS: SYNTHROID 100 MCG PO SCH (11:00)
[2023-03-02] MEDS: Zithromax 500 MG/ 250 ML NaCl Premix 500 MG/250 ML IVPB IV SCH (11:00)
[2023-03-02] MEDS: Acidophilus TABLET PO SCH (11:00)
--- NOTE | 2023-03-02 16:31 | PCM.NOTE ---
Date and Time: 03/02/23 1624 Subjective Assessment: No acute events overnight. Remains on 2 L oxygen. States that she still "feels like crap", but wants to try and go home and "feel like crap there". Eating little bit more. Not having any further constipation. Noting some oral thrush with some mild oral pain on swallowing. Denies fevers, chills, or cough. Still has some dyspnea. - Review of Systems All Other Systems: Reviewed and Negative Objective Exam General Appearance: no apparent distress Neurologic Exam: alert, oriented x 3, normal mood/affect Skin Exam: No rash Respiratory Exam: normal breath sounds, lungs clear, other (On 2 L oxygen by nasal cannula), No respiratory distress Cardiovascular Exam: regular rate/rhythm, normal heart sounds, No murmur, No gallop Gastrointestinal/Abdomen Exam: soft, No tenderness, No distention OBJECTIVE DATA Vital Signs: Vital Signs - 24 hr Temp Pulse Resp BP Pulse Ox 03/02/23 16:00 97.6 F 77 16 179/79 94 L 03/02/23 11:52 96.8 F 78 16 159/74 91 L 03/02/23 07:18 96.9 F 70 16 135/60 91 L 03/02/23 04:00 97.9 F 76 20 143/68 91 L 03/01/23 23:52 98.2 F 76 24 155/69 94 L 03/01/23 20:00 97.7 F 84 18 149/76 90 L 03/01/23 19:06 89 18 90 L Pain Assessment - Last Documented Pain Intensity 0 Pain Scale Used 0-10 Pain Scale Intake and Output: Intake & Output 02/28/23 03/01/23 03/02/23 03/03/23 11:59 11:59 11:59 11:59 Intake Total 1060 3160 1897 Output Total 500 Balance 1060 2660 1897 Weight 62.3 kg 62.3 kg 62.2 kg Lab Results: Lab Results-Last 24 Hours 03/02/23 03/02/23 Range/Units 04:59 04:59 WBC 9.7 (4.0-10.5) x10^3/uL RBC 3.63 L (4.1-5.4) x10^6/uL Hgb 8.7 L (12.0-16.0) g/dL Hct 28.2 L (35-47) % MCV 77.7 L (78-100) fL MCH 24.0 L (26-32) pg MCHC 30.9 L (32-36) g/dL RDW 17.2 H (11.5-14.0) % Plt Count 270 (150-450) x10^3/uL MPV 10.5 (7.5-11.0) fL Sodium 134 L (137-145) mmol/L Potassium 4.0 D (3.5-5.1) mmol/L Chloride 101 (98-107) mmol/L Carbon Dioxide 25 (22-30) mmol/L Anion Gap 11.4 (5-15) MEQ/L BUN 7 (7-17) mg/dL Creatinine 0.50 L (0.52-1.04) mg/dL Estimated GFR > 60.0 ML/MIN Glucose 96 (74-106) mg/dL Calcium 8.6 (8.4-10.2) mg/dL Magnesium 2.0 (1.6-2.3) mg/dL . Microbiology: Blood cultures from 02/25 initial Gram stain reported gram-negative rods, but unable to identify plates. Sent out for outside reference lab, and preliminary result with gram-positive cocci. Spoke with laboratory, and suspect specimen may be Streptococcus, which they are not able to fully identify. However, it is still unknown at this time. Blood cultures from 02/26 negative (final report) Assessment/Plan (1) Right middle lobe pneumonia Current Visit: Yes Status: Acute Assessment & Plan: 57 y/o F with h/o chronic anemia, hypothyroidism, and prior pneumothorax, who presents with pneumonia and bacteremia . ## RML Pneumonia - with acute hypoxic respiratory failure. Weaned to 2L oxygen, and drops to mid 80s when ambulating off oxygen. - continue empiric Zosyn, Azithromcyin - wean FiO2 to maintain SpO2 91-94% - continue PRN Guaifenesin DM, Tessalon - continue DuoNeb q4h PRN - will likely need to arrange for home oxygen ## Bacteremia - initial Gram stain report with gram-negative rods, but after speaking with microbiology, they suspect might actually be gram-positive cocci, likely strep. However, still pending identification from the reference lab. Repeat cultures from 02/26 are negative, but that was after the initiation of antibiotics. In any case, appears to be improving on empiric Zosyn and azithromycin, given normalization of leukocytosis and overall clinical improvement. - follow up identification of bacteria in blood cultures ## Oral thrush secondary to use of broad acting antibiotics. Start nystatin swish and spit QID ## Hypokalemia levels improved today after repletion. - repeat BMP in AM ## Constipation - resolved today after scheduled docusate. - continue Docusate 100 BID - continue Miralax PRN daily ## Hypothyroidism - continue home levothyroxine Code Status: Full code Prophylaxis: Ambulatory Dispo: Pending final identification of blood culture results for identification and duration of antibiotic therapy. At that point, we will go home, likely with home oxygen. Entirety of encounter took place via telemedicine, to which patient consented. Code(s): J18.9 - PNEUMONIA, UNSPECIFIED ORGANISM Telemedicine Encounter - Telemedicine Encounter Telemedicine Encounter: The entirety of this encounter was performed via Telemedicine"
[2023-03-02] MEDS: Nystatin SUSPENSION 60 ML PO SCH ×2 (16:42→21:23)
[2023-03-03] MEDS: PIPERACILLIN/TAZOBACTAM 3.375 GM in Sodium Chloride 100ML MINI-BAG PLUS 100 ML IV SCH ×3 (00:45→13:24)
[2023-03-03 05:54] LABS: ANION GAP 13.2 MEQ/L (5-15); BLOOD UREA NITROGEN 11 mg/dL (7-17); CHLORIDE 101 mmol/L (98-107); Calcium 8.3 mg/dL (8.4-10.2); Carbon Dioxide 24 mmol/L (22-30); EST GLOMERULAR FILTRATION RATE > 60.0 ML/MIN; Glucose 90 mg/dL (74-106); MAGNESIUM 1.9 mg/dL (1.6-2.3); Potassium 3.3 mmol/L (3.5-5.1); SODIUM 134 mmol/L (137-145)
[2023-03-03 05:58] LABS: Hematocrit 29.6 % (35-47); Hemoglobin 9.2 g/dL (12.0-16.0); Mean Cell Volume 77.9 fL (78-100); Mean Corpuscular Hemoglobin 24.2 pg (26-32); Mean Corpuscular Hgb Concent. 31.1 g/dL (32-36); Mean Platelet Volume 10.8 fL (7.5-11.0); Platelet Count 345 x10^3/uL (150-450); Red Cell Distribution Width 17.9 % (11.5-14.0); White Blood Count 7.7 x10^3/uL (4.0-10.5)
[2023-03-03] MEDS ORDERED: Klor Con PO ONE (09:00)
[2023-03-03] MEDS: Docusate Sodium 100 MG PO SCH (10:47)
[2023-03-03] MEDS: SYNTHROID 100 MCG PO SCH (10:47)
[2023-03-03] MEDS: Acidophilus TABLET PO SCH (10:47)
[2023-03-03] MEDS: Nystatin SUSPENSION 60 ML PO SCH (10:48)
[2023-03-03] MEDS: Zithromax 500 MG/ 250 ML NaCl Premix 500 MG/250 ML IVPB IV SCH (11:02)
[2023-03-03 11:38] VITALS: BP 168/80; PULSE 79; O2SAT 94
--- NOTE | 2023-03-03 12:46 | PCM.DS ---
Discharge Summary Date of Admission: 02/26/23 09:49 Date of Discharge: 03/03/2023 Admitting Physician: REJI PETERS MD Primary Care Provider: DALE AMBROSE MD Allergies Allergies No Known Drug Allergies Allergy (Verified 02/25/23 16:07) Hospital Summary - Hospital Course Hospital Course: 57-year-old with a history of hypothyroidism and chronic anemia, who presented with 3 days of fevers, cough, nausea, and chest pain. On admission, noted to have a right middle lobe pneumonia with wedgelike consolidation, requiring 2 to 4 L of oxygen. She was admitted for management of pneumonia. Patient was started on empiric coverage with Zosyn and azithromycin. Viral panels were negative, but blood cultures showed immediate bacteria on Gram stain, initially reported as gram-negative rods. The local microbiology lab was unable to identify the species on culture, and it was sent out for outside lab identification, eventually growing pansensitive Streptococcus pneumoniae on both plates. Repeat blood cultures from 02/26 were negative. She has been improving overall, weaning her oxygen. She was able to ambulate without hypoxia on room air prior to discharge. Her course was complicated by oral thrush because of her broad-spectrum anabiotic's, improved with nystatin swish and spit. She also had some intermittent constipation and hypokalemia, improved with laxatives and potassium repletion. She will be discharged home to complete a 14-day course of amoxicillin from 02/26, to end on 03/12. She will follow-up with her PCP in 1 to 2 weeks. Entirety of encounter took place via telemedicine. Patient consented to telemedicine. Greater than 30 minutes managing discharge. - Vitals & Intake/Output Vital Signs: Vital Signs Temperature 97.7 F 03/03/23 11:37 Pulse Rate 79 03/03/23 11:37 Respiratory Rate 18 03/03/23 11:37 Blood Pressure 168/80 03/03/23 11:37 O2 Sat by Pulse Oximetry 94 L 03/03/23 11:37 Intake & Output: Intake & Output 03/01/23 03/02/23 03/03/23 03/04/23 11:59 11:59 11:59 11:59 Intake Total 3160 1897 1733 Output Total 500 Balance 2660 1897 1733 Weight 62.3 kg 62.2 kg 57.9 kg - Lab Result Diagrams: 03/03/23 04:48 03/03/23 04:48 Lab Results-Last 24 Hrs: Lab Results-Last 24 Hours 03/03/23 03/03/23 Range/Units 04:48 04:48 WBC 7.7 (4.0-10.5) x10^3/uL RBC 3.80 L (4.1-5.4) x10^6/uL Hgb 9.2 L (12.0-16.0) g/dL Hct 29.6 L (35-47) % MCV 77.9 L (78-100) fL MCH 24.2 L (26-32) pg MCHC 31.1 L (32-36) g/dL RDW 17.9 H (11.5-14.0) % Plt Count 345 (150-450) x10^3/uL MPV 10.8 (7.5-11.0) fL Sodium 134 L (137-145) mmol/L Potassium 3.3 L (3.5-5.1) mmol/L Chloride 101 (98-107) mmol/L Carbon Dioxide 24 (22-30) mmol/L Anion Gap 13.2 (5-15) MEQ/L BUN 11 (7-17) mg/dL Creatinine 0.60 (0.52-1.04) mg/dL Estimated GFR > 60.0 ML/MIN Glucose 90 (74-106) mg/dL Calcium 8.3 L (8.4-10.2) mg/dL Magnesium 1.9 (1.6-2.3) mg/dL Micro Results-Entire Visit: Microbiology 02/25/23 16:25 Blood Culture Gram Stain - Final Blood Blood Culture - Final ADDITIONAL TESTING IS REQUIRED TO OBTAIN ID AND SENSITIVITY. SPECIMEN HAS BEEN SENT TO REFERENCE LAB, WITH FINAL RESULT EXPECTED WITHIN 96 HOURS. 02/25/23 16:25 Blood Culture Gram Stain - Final Blood Blood Culture - Final ADDITIONAL TESTING IS REQUIRED TO OBTAIN ID AND SENSITIVITY. SPECIMEN HAS BEEN SENT TO REFERENCE LAB, WITH FINAL RESULT EXPECTED WITHIN 96 HOURS. 02/25/23 16:25 Aerobic Culture - Final Blood Aerobic Organism ID Result 1 - Final Aerobic Bacterial Sensitivity - Final 02/25/23 16:25 Aerobic Culture - Final Blood Aerobic Organism ID Result 1 - Final Aerobic Bacterial Sensitivity - Final 02/26/23 10:28 Blood Culture - Final Blood NO GROWTH 02/26/23 10:24 Blood Culture - Final Blood NO GROWTH - Radiology Exams Ordered Rad Exams-Entire Visit: CT chest patchy consolidation with air bronchograms in the right upper lobe, min imal right-sided pleural effusion. Bilateral emphysematous changes. Enlarged mediastinal and right supraclavicular lymph nodes, around 2 cm in diameter. - Procedures and Test Procedures and Tests throughout Hospitalization: Therapy Orders & Screens 02/25/23 20:18 Respiratory Therapy Consult ONCE Comment: Reason For Exam: 02/25/23 23:40 Respiratory Therapy Assessment DAILY Comment: Diagnosis: pneumonia 02/25/23 23:41 Oxygen Nasal Cannula 2 lpm Comment: Diagnosis: pneumonia 03/03/23 11:21 Qualify for Home Oxygen TODAY Comment: Diagnosis: PNEUMONIA Discharge Exam General Appearance: no apparent distress Neurologic Exam: alert, oriented x 3, normal mood/affect Eye Exam: eyes nml inspection Respiratory Exam: normal breath sounds, lungs clear, other (On room air), No accessory muscle use Cardiovascular Exam: regular rate/rhythm, normal heart sounds, No edema Gastrointestinal/Abdomen Exam: soft, No tenderness, No distention Final Diagnosis/Problem List - Final Discharge Diagnosis/Problem (1) Right middle lobe pneumonia Current Visit: Yes Status: Acute Code(s): J18.9 - PNEUMONIA, UNSPECIFIED ORGANISM (2) Oral thrush Current Visit: Yes Status: Acute Code(s): B37.0 - CANDIDAL STOMATITIS (3) Bacteremia due to Streptococcus pneumoniae Current Visit: Yes Status: Acute Code(s): R78.81 - BACTEREMIA; B95.3 - STRE PTOCOCCUS PNEUMONIAE CAUSING DISEASES CLASSD [id number] - Discharge Discharge Date: 03/03/23 Disposition: Home, Self-Care Condition: Stable Prescriptions: New Amoxicillin 1,000 mg PO TID 10 Days #60 tablet Nystatin 60 ml [Nystatin SUSPENSION 60 ML] 5 ml PO QID #60 ml Continue Levothyroxine Sodium 100 Mcg [Synthroid 100 Mcg] 100 mcg PO DAILY Instructions: Pneumonia, Adult (DC) Follow up with: JUAN CARLOS SHAW [ACTIVE STAFF] - (NEED TO SEE Tracey SHAW IN 2-3 WEEKS) RAMSEY LEON MD [ACTIVE STAFF] -
== END 2023-03-03 14:53 | disposition home or self-care (01) | DRG 193 ==
LOC: ED 14:54 → MED SURG 20:14 → OBSVTOIN 02-26 09:49
PROVIDERS: ADMIT Internal Medicine Critical Care Medicine; ATTEND Family Medicine
DX: J18.9 Pneumonia, unspecified organism (principal); J96.90 Respiratory failure, unspecified, unspecified whether with hypoxia or hypercapnia; B37.0 Candidal stomatitis; R78.81 Bacteremia; E87.1 Hypo-osmolality and hyponatremia; B95.3 Streptococcus pneumoniae as the cause of diseases classified elsewhere; R79.89 Other specified abnormal findings of blood chemistry; E87.6 Hypokalemia; D64.9 Anemia, unspecified; K59.00 Constipation, unspecified; E03.9 Hypothyroidism, unspecified; Z79.899 Other long term (current) drug therapy; Z20.828 Contact with and (suspected) exposure to other viral communicable diseases
CPT/HCPCS: 0241U; 36000; 36415; 71045; 71250; 80048; 80053; 81001; 83605; 83735; 83880; 85025; 85027; 86308; 87040; 87077; 87651; 93041; 94640; 94760; 96360; 96365; 96374; 99285; G0378; J0456; J0696; J1650; J1956; J2405; J2550; Q3014; A9270-GY; J3475